=== PATIENT | male | born 1950 | race Caucasian/White ===

== ENCOUNTER 2016-12-04 19:26 | Emergency (ER) | payer MEDICARE, OTHER ==
[2016-12-04 19:39] VITALS: O2SAT 98
[2016-12-04] MEDS ORDERED: Sodium Chloride 0.9% 1000 ML 1,000 ML IV STA (19:44)
[2016-12-04] MEDS ORDERED: Zofran 4 MG/2 ML VIAL IV ONE (19:44)
--- NOTE | 2016-12-04 19:49 | ERPHSYRPT ---
- History of Present Illness Time Seen by Provider: 12/04/16 19:40 Historian: patient, family Physician History: CC: vomiting and diarrhea Hx: 66 y/o male patient of Dr Dimas. He has had vomiting and diarrhea since 7AM today. Some cramping abd discomfort that comes in waves. No fever or chills. No ill contacts. Symptoms moderately severe and not relieved with anti diarrheal tablets. He feels some general weakness. ILL: DM, hernia repair. Recent urinary hesitancy. Timing/Duration: today Allergies/Adverse Reactions: celecoxib [From Celebrex] Allergy (Verified 12/04/16 19:28) clarithromycin [From Biaxin] Allergy (Verified 12/04/16 19:28) Home Medications: Amlodipine Besylate 10 mg [Norvasc 10 MG] 10 mg PO DAILY 12/04/16 [History] Aspirin/Calcium Carbonate/Mag [Aspirin Buffered 325 mg Tab] 325 mg PO DAILY 06/13 [History] Docusate Sodium [Stool Softener] 100 mg PO DAILY 12/04/16 [History] Fenofibrate 160 mg PO DAILY 12/04/16 [History] Gabapentin 300 mg PO TID 12/04/16 [History] Hum Insulin NPH/Reg Insulin Hm [Humulin 70-30 Vial] 1 unit SQ BID 12/04/16 [ History] Hydralazine HCl 10 mg PO QID 12/04/16 [History] Levothyroxine Sodium 50 Mcg [Synthroid 50 Mcg] 50 mcg PO DAILY 12/04/16 [ History] Losartan/Hydrochlorothiazide [Losartan-Hctz 100-25 mg Tab] 1 each PO DAILY 12/04 [History] Metformin HCl [Metformin HCl ER] 500 mg PO BID 12/04/16 [History] Metoprolol Succinate 100 mg [Toprol Xl 100 MG] 100 mg PO BID 12/04/16 [ History] Pravastatin Sodium [Pravachol] 80 mg PO HS 12/04/16 [History] - Review of Systems Constitutional: Malaise, Weakness, No Fever, No Chills Eyes: No Symptoms Ears, Nose, & Throat: No Symptoms Respiratory: No Cough, No Dyspnea Cardiac: No Chest Pain Abdominal/Gastrointestinal: Abdominal Pain (cramping), Nausea, Vomiting, Diarrhea Genitourinary Symptoms: No Dysuria Musculoskeletal: No Back Pain Skin: No Rash Neurological: No Focal Weakness, No Headache, No Parasthesia All Other Systems: Reviewed and Negative - Past Medical History Pertinent Past Medical History: Yes Endocrine Medical History: Diabetes Type II Other Medical History: recent URI treated with prednisone and abtx - Past Surgical History Gastrointestinal: Hernia Repair - Social History 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) - Nursing Vital Signs Nursing Vital Signs: Initial Vital Signs Temperature 98.1 F Pulse Rate 72 Respiratory Rate 16 Blood Pressure 129/75 Pain Intensity 4 - Physical Exam General Appearance: alert Eye Exam: PERRL/EOMI Ears, Nose, Throat Exam: normal ENT inspection, moist mucous membranes Neck Exam: normal inspection, non-tender, supple Respiratory Exam: normal breath sounds, lungs clear Cardiovascular Exam: regular rate/rhythm, No murmur Gastrointestinal/Abdomen Exam: soft, No tenderness, No distention, No mass, No guarding Male Genitalia Exam: normal genitalia Back Exam: normal inspection, normal range of motion Extremity Exam: normal inspection, normal range of motion Neurologic Exam: alert, oriented x 3, cooperative, sensation nml, No motor deficits Skin Exam: warm, dry, No rash SpO2 Interpretation: normal SpO2: 98 Oxygen Delivery: Room Air - Course Nursing assessment & vital signs reviewed: Yes - Radiology Exams AAS X-ray Interpretation: Reviewed by me, Negative Ordered Tests: Active Orders 24 hr Category Date Time Status ACCUCHECK [Accucheck] STAT Care 12/04/16 19:47 Active ACCUCHECK [Accucheck] STAT Care 12/04/16 19:47 Active Clean Catch Urine Specimen STAT Care 12/04/16 19:44 Active IV Insertion STAT Care 12/04/16 19:44 Active OBSTR/ACUTE ABDOMEN SERIES Stat Exams 12/04/16 19:44 Taken CBC W DIFF Stat Lab 12/04/16 19:50 Completed CMP Stat Lab 12/04/16 19:50 Completed Lactic Acid Urgent Lab 12/04/16 19:44 Completed Manual Differential NC Stat Lab 12/04/16 19:50 Completed UA Stat Lab 12/04/16 19:44 Ordered Medication Summary Discontinued Medications Generic Name Dose Route Start Last Admin Trade Name Freq PRN Reason Stop Dose Admin Fentanyl Citrate 25 mcg 12/04/16 20:40 12/04/16 20:44 Sublimaze 100 Mcg/2 Ml IV 12/04/16 20:41 25 mcg STAT ONE Administration Fentanyl Citrate Confirm 12/04/16 20:41 Sublimaze 100 Mcg/2 Ml Administered 12/04/16 20:42 Dose 100 mcg .ROUTE .STK-MED ONE Sodium Chloride 1,000 mls @ 999 mls/hr 12/04/16 19:44 12/04/16 19:54 Sodium Chloride 0.9% 1000 Ml IV 12/04/16 20:44 999 mls/hr .Q1H1M STA Administration Sodium Chloride Confirm 12/04/16 19:50 Sodium Chloride 0.9% 1000 Ml Administered 12/04/16 19:51 Dose 1,000 mls @ ud .ROUTE .STK-MED ONE Ondansetron HCl 4 mg 12/04/16 19:44 12/04/16 19:54 Zofran 4 Mg/2 Ml Vial IV 12/04/16 19:45 4 mg STAT ONE Administration Ondansetron HCl Confirm 12/04/16 19:50 Zofran 4 Mg/2 Ml Vial Administered 12/04/16 19:51 Dose 4 mg .ROUTE .STK-MED ONE Lab/Rad Data: Laboratory Result Diagrams 12/04/16 19:50 12/04/16 19:50 Laboratory Results 12/04/16 12/04/16 12/04/16 Range/Units 19:50 19:50 19:44 WBC 11.1 H (4.0-10.5) K/mm3 RBC 5.33 (4.1-5.6) M/mm3 Hgb 14.4 (12.5-18.0) gm/dl Hct 45.0 (42-50) % MCV 84.4 (78-100) fl MCH 27.0 (26-32) pg MCHC 32.0 (32-36) g/dl RDW 14.6 H (11.5-14.0) % Plt Count 232 (150-450) K/mm3 MPV 11.6 H (6-9.5) fl Gran % 90.4 H (36.0-66.0) % Lymphocytes % 4.6 L (24.0-44.0) % Monocytes % 4.3 (0.0-12.0) % Eosinophils % 0.5 (0.00-5.0) % Basophils % 0.2 (0.0-0.4) % Segmented Neutrophils 88 H (36.-66.) % Lymphocytes (Manual) 6 L (24-44) % Monocytes (Manual) 5 (0.0-12.0) % Eosinophils (Manual) 1 (0.00-3.0) % Basophils # 0.02 (0-0.4) Differential Comment NORMAL Platelet Estimate NORMAL (NORMAL) Sodium 139 (136-145) mEq/L Potassium 4.2 (3.5-5.1) mEq/L Chloride 101 (98-107) mEq/L Carbon Dioxide 27.8 (21-32) mEq/L Anion Gap 14.4 (5-15) MEQ/L BUN 26 H (9-20) mg/dL Creatinine 1.23 (0.55-1.30) mg/dl Estimated GFR > 60 ML/MIN Glucose 221 H (70-110) MG/DL Lactic Acid 1.7 (0.4-2.0) Calcium 9.0 (8.5-10.1) mg/dL Total Bilirubin 0.5 (0.2-1.0) mg/dL AST 23 (15-37) U/L ALT 33 (12-78) U/L Alkaline Phosphatase 56 (46-116) U/L Serum Total Protein 7.6 (6.4-8.2) gm/dL Albumin 4.0 (3.4-5.0) g/dL - Progress Progress Note: 12/04/16 21:06 PAtient feels some better. Labs reassuring. He is sipping ice chips. Will release with instructions. Counseled pt/family regarding: lab results, diagnosis, need for follow-up, rad results - Departure Time of Disposition: 21:07 Departure Disposition: Home Clinical Impression: Vomiting and diarrhea Condition: Stable Critical Care Time: No Referrals: МАРИНА DIMAS [Primary Care Provider] - Instructions: Vomiting -- Adult, Diarrhea and Traveler's Diarrhea -- Adult Additional Instructions: Use ondansetron on tongue every 6 hours if needed for nausea/vomiting. Sip fluids. Advance bland diet as tolerated. REturn for worsened pain, passing blood, high fever, or concerns. Follow up next week with Dr Dimas if not better. Prescriptions: Ondansetron [Zofran Odt] 4 mg PO Q6HPRN PRN #10 tab.rapdis PRN Reason: Nausea/Vomiting
[2016-12-04] MEDS ORDERED: Sodium Chloride 0.9% 1000 ML 1,000 ML ONE (19:50)
[2016-12-04] MEDS ORDERED: Zofran 4 MG/2 ML VIAL ONE (19:50)
[2016-12-04 20:02] LABS: BASOPHIL % 0.2 % (0.0-0.4); Eosinophil % 0.5 % (0.00-5.0); Granulocytes % 90.4 % (36.0-66.0); Lymphocytes % 4.6 % (24.0-44.0); Mean Cell Volume 84.4 fl (78-100); Mean Platelet Volume 11.6 fl (6-9.5); Monocytes % 4.3 % (0.0-12.0); Platelet Count 232 K/mm3 (150-450); Red Blood Count 5.33 M/mm3 (4.1-5.6); Red Cell Distribution Width 14.6 % (11.5-14.0); White Blood Count 11.1 K/mm3 (4.0-10.5)
[2016-12-04 20:24] LABS: ALKALINE PHOSPHATASE 56 U/L (46-116); ANION GAP 14.4 MEQ/L (5-15); BILIRUBIN,TOTAL 0.5 mg/dL (0.2-1.0); BLOOD UREA NITROGEN 26 mg/dL (9-20); CHLORIDE 101 mEq/L (98-107); Carbon Dioxide 27.8 mEq/L (21-32); Glucose 221 MG/DL (70-110); Potassium 4.2 mEq/L (3.5-5.1); SGOT/AST 23 U/L (15-37); SGPT/ALT 33 U/L (12-78); SODIUM 139 mEq/L (136-145); Total Protein 7.6 gm/dL (6.4-8.2)
[2016-12-04] MEDS ORDERED: SUBLIMAZE 100 MCG/2 ML IV ONE (20:40)
[2016-12-04] MEDS ORDERED: SUBLIMAZE 100 MCG/2 ML ONE (20:41)
[2016-12-04 20:53] LABS: Eosinophil 1 % (0.00-3.0); Total Cells Counted 100
[2016-12-04 20:54] LABS: Platelet Estimate NORMAL (NORMAL)
[2016-12-04] MEDS ORDERED: ZOFRAN ODT 4 MG PO ONE (21:08)
[2016-12-04 21:09] VITALS: BP 144/64; PULSE 80
[2016-12-04] MEDS ORDERED: ZOFRAN ODT 4 MG ONE (21:12)
--- NOTE | 2016-12-05 09:28 | XRAY ---
Indication: Emesis and diarrhea. Comparison: Chest exam April 16, 2015 2 views of the abdomen demonstrates nonspecific nonobstructive bowel gas pattern. Solid organs unremarkable. Osseous structures intact with mild osteopenia and mild degenerative changes of the spine and hips. Single frontal chest remains clear again with scattered calcified granulomas and previous CABG surgery. Heart is not enlarged. Bony thorax intact again with degenerative changes. Impression: Nonacute nonobstructed abdomen. Stable nonacute one view chest with again evidence for old granulomatous disease.
== END 2016-12-04 21:47 | disposition home or self-care (01) ==
LOC: ED 19:26
DX: R11.2 Nausea with vomiting, unspecified (principal); R19.7 Diarrhea, unspecified; R10.9 Unspecified abdominal pain; E11.9 Type 2 diabetes mellitus without complications; Z79.4 Long term (current) use of insulin
CPT/HCPCS: 36000; 36415; 74022; 80053; 82962; 83605; 85025; 96360; 96374; 96375; 99283; J2405; J3010; Q0162

== ENCOUNTER 2016-12-05 20:36 | Observation (INO) | payer MEDICARE, OTHER ==
[2016-12-05] MEDS ORDERED: Zofran 4 MG/2 ML VIAL IV ONE (21:37)
[2016-12-05] MEDS ORDERED: Sodium Chloride 0.9% 1000 ML 1,000 ML IV STA (21:37)
[2016-12-05] MEDS ORDERED: Zofran 4 MG/2 ML VIAL ONE (21:40)
[2016-12-05] MEDS ORDERED: Sodium Chloride 0.9% 1000 ML 1,000 ML ONE (21:40)
--- NOTE | 2016-12-05 21:43 | ERPHSYRPT ---
- History of Present Illness Time Seen by Provider: 12/05/16 21:39 Historian: patient Exam Limitations: no limitations Patient Subjective Stated Complaint: dx with flu here in the er yesterday.. pt readmitted with continued nausea and the desire to be admitted as a pt here at the hospital Triage Nursing Assessment: diarrhea and vomiting yesterday, today pt has nausea and the inability to eat. pt c/o severe weakness. Physician History: 66-year-old white male with history of diabetes, angina, upper respiratory infection Patient seen here yesterday for vomiting and diarrhea states that today is worse. Patient states he feels nauseous he states he can't keep anything down he has continued stools. Patient apparently was given medicine to make him not vomit. Past medical history includes diabetes type 2, angina, upper respiratory infection Past surgical history includes quadruple bypass and hernia surgery Timing/Duration: yesterday Activities at Onset: none Quality: cramping Abdominal Pain Onset Location: other (lower abdominal cramping) Pain Radiation: no radiation Severity of Pain-Max: mild Severity of Pain-Current: mild Modifying Factors: Improves With: vomiting, other (diarrhea). Worsens With: analgesics, antacids, breathing, coughing, defecating, eating, exercise, lying down, movement, palpation, rest, urinating, position Associated Symptoms: denies symptoms Previous symptoms: same symptoms as today (seen yesterday for the same), recently seen (seen yesterday for the same) Allergies/Adverse Reactions: celecoxib [From Celebrex] Allergy (Verified 12/04/16 19:28) clarithromycin [From Biaxin] Allergy (Verified 12/04/16 19:28) Home Medications: Amlodipine Besylate 10 mg [Norvasc 10 MG] 10 mg PO DAILY 12/04/16 [History] Aspirin/Calcium Carbonate/Mag [Aspirin Buffered 325 mg Tab] 325 mg PO DAILY 06/13 [History] Docusate Sodium [Stool Softener] 100 mg PO DAILY 12/04/16 [History] Fenofibrate 160 mg PO DAILY 12/04/16 [History] Gabapentin 300 mg PO TID 12/04/16 [History] Hum Insulin NPH/Reg Insulin Hm [Humulin 70-30 Vial] 1 unit SQ BID 12/04/16 [ History] Hydralazine HCl 10 mg PO QID 12/04/16 [History] Levothyroxine Sodium 50 Mcg [Synthroid 50 Mcg] 50 mcg PO DAILY 12/04/16 [ History] Losartan/Hydrochlorothiazide [Losartan-Hctz 100-25 mg Tab] 1 each PO DAILY 12/04 [History] Metformin HCl [Metformin HCl ER] 500 mg PO BID 12/04/16 [History] Metoprolol Succinate 100 mg [Toprol Xl 100 MG] 100 mg PO BID 12/04/16 [ History] Pravastatin Sodium [Pravachol] 80 mg PO HS 12/04/16 [History] Hx Tetanus, Diphtheria Vaccination/Date Given: Yes Hx Influenza Vaccination/Date Given: Yes Hx Pneumococcal Vaccination/Date Given: Yes Immunizations Up to Date: Yes - Review of Systems Constitutional: No Fever, No Chills Eyes: No Symptoms Ears, Nose, & Throat: No Symptoms Respiratory: No Cough, No Dyspnea Cardiac: No Chest Pain, No Edema, No Syncope Abdominal/Gastrointestinal: Abdominal Pain (lower abdominal pain), No Nausea, No Vomiting, No Diarrhea, No Constipation, No Hematemesis, No Hematochezia, No Melena, No Dysphagia, No Appetite Changes Genitourinary Symptoms: No Dysuria Musculoskeletal: No Back Pain, No Neck Pain Skin: No Rash Neurological: No Dizziness, No Focal Weakness, No Sensory Changes Psychological: No Symptoms Endocrine: No Symptoms All Other Systems: Reviewed and Negative - Past Medical History Pertinent Past Medical History: Yes Neurological History: No Pertinent History ENT History: No Pertinent History Cardiac History: Angina Respiratory History: No Pertinent History Endocrine Medical History: Diabetes Type II Musculoskeletal History: No Pertinent History GI Medical History: No Pertinent History History: No Pertinent History Psycho-Social History: No Pertinent History Male Reproductive Disorders: No Pertinent History Other Medical History: recent URI treated with prednisone and abtx - Past Surgical History Past Surgical History: Yes Neuro Surgical History: No Pertinent History Cardiac: No Pertinent History Respiratory: No Pertinent History Gastrointestinal: Hernia Repair Genitourinary: No Pertinent History Musculoskeletal: No Pertinent History Male Surgical History: No Pertinent History Other Surgical History: quadruple bypass 2007, - Social History Smoking Status: Former smoker Exposure to second hand smoke: No Drug Use: none 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) - Nursing Vital Signs Nursing Vital Signs: Initial Vital Signs Temperature 97.8 F Temperature Source Oral Pulse Rate 91 Respiratory Rate 18 Blood Pressure 137/69 Pain Intensity 3 - Physical Exam General Appearance: mild distress Eye Exam: PERRL/EOMI, eyes nml inspection Ears, Nose, Throat Exam: normal ENT inspection, pharynx normal, moist mucous membranes Neck Exam: normal inspection, non-tender, supple, full range of motion Respiratory Exam: normal breath sounds, lungs clear, No respiratory distress Cardiovascular Exam: regular rate/rhythm, normal heart sounds Gastrointestinal/Abdomen Exam: soft, other (abdomen mildly distended tender lower quadrantspositive bowel sounds negative rebo) Back Exam: normal inspection, normal range of motion, No CVA tenderness, No vertebral tenderness Extremity Exam: normal inspection, normal range of motion, pelvis stable Neurologic Exam: alert, oriented x 3, cooperative, normal mood/affect, nml cerebellar function, sensation nml, No motor deficits Skin Exam: normal color, warm, dry SpO2 Interpretation: normal (95%) SpO2: 95 Oxygen Delivery: Room Air - Course Nursing assessment & vital signs reviewed: Yes EKG Interpreted by Me: RATE (82 bpm), NORMAL AXIS, Other (EKG, sinus arrhythmia , 82 bpm, T wave inversions in leads 1 aVL, V1 through V4 age undetermined no old EKG for comparison) Ordered Tests: Active Orders 24 hr Category Date Time Status Clean Catch Urine Specimen STAT Care 12/05/16 23:57 Active EKG-ER Only STAT Care 12/05/16 23:37 Active IV Insertion STAT Care 12/05/16 21:37 Active Orthostatic Vital Signs STAT Care 12/05/16 21:39 Active AMYLASE Stat Lab 12/05/16 21:50 Completed CBC W DIFF Stat Lab 12/05/16 21:50 Completed CMP Stat Lab 12/05/16 21:50 Completed LIPASE Stat Lab 12/05/16 21:50 Completed Manual Differential NC Stat Lab 12/05/16 21:50 Completed UA Stat Lab 12/05/16 23:31 Ordered Medication Summary Discontinued Medications Generic Name Dose Route Start Last Admin Trade Name Freq PRN Reason Stop Dose Admin Sodium Chloride 1,000 mls @ 999 mls/hr 12/05/16 21:37 12/05/16 21:41 Sodium Chloride 0.9% 1000 Ml IV 12/05/16 22:37 999 mls/hr .Q1H1M STA Administration Sodium Chloride Confirm 12/05/16 21:40 Sodium Chloride 0.9% 1000 Ml Administered 12/05/16 21:41 Dose 1,000 mls @ ud .ROUTE .STK-MED ONE Ondansetron HCl 4 mg 12/05/16 21:37 12/05/16 21:40 Zofran 4 Mg/2 Ml Vial IV 12/05/16 21:38 4 mg STAT ONE Administration Ondansetron HCl Confirm 12/05/16 21:40 Zofran 4 Mg/2 Ml Vial Administered 12/05/16 21:41 Dose 4 mg .ROUTE .STK-MED ONE Lab/Rad Data: Laboratory Result Diagrams 12/05/16 21:50 12/05/16 21:50 Laboratory Results 12/05/16 12/05/16 Range/Units 21:50 21:50 WBC 6.8 (4.0-10.5) K/mm3 RBC 4.96 (4.1-5.6) M/mm3 Hgb 13.3 (12.5-18.0) gm/dl Hct 42.0 (42-50) % MCV 84.7 (78-100) fl MCH 26.8 (26-32) pg MCHC 31.7 L (32-36) g/dl RDW 14.9 H (11.5-14.0) % Plt Count 191 (150-450) K/mm3 MPV 11.2 H (6-9.5) fl Segmented Neutrophils 86 H (36.-66.) % Lymphocytes (Manual) 5 L (24-44) % Monocytes (Manual) 9 (0.0-12.0) % Differential Comment NORMAL Platelet Estimate NORMAL (NORMAL) Sodium 137 (136-145) mEq/L Potassium 4.2 (3.5-5.1) mEq/L Chloride 98 (98-107) mEq/L Carbon Dioxide 27.0 (21-32) mEq/L Anion Gap 16.5 H (5-15) MEQ/L BUN 28 H (9-20) mg/dL Creatinine 1.33 H (0.55-1.30) mg/dl Estimated GFR 57 ML/MIN Glucose 276 H (70-110) MG/DL Calcium 7.9 L (8.5-10.1) mg/dL Total Bilirubin 0.5 (0.2-1.0) mg/dL AST 22 (15-37) U/L ALT 33 (12-78) U/L Alkaline Phosphatase 46 (46-116) U/L Serum Total Protein 7.0 (6.4-8.2) gm/dL Albumin 3.6 (3.4-5.0) g/dL Amylase 22 L (25-115) U/L Lipase 162 (73-393) U/L - Progress Progress: improved Progress Note: 12/05/16 23:31 This is a 66-year-old white male who was seen here yesterday secondary to nausea and vomiting Patient states he continues to have nausea vomiting he has some lower abdominal pain he has not had any fevers. Patient feels like he cannot manage at home. Patient's labs essentially normal vitals are stable. Will discuss case with Dr. cano 12/05/16 23:35 Patient given IV fluids and Zofran. Patient's labs remarkable for elevated glucose of 276. Patient just now able to provide a urine. Patient states that he cannot manage at home he continues to have nausea and vomiting case is discussed with Dr. cano Will place on observation. - Departure Time of Disposition: 23:34 Departure Disposition: Observation Clinical Impression: Failure of outpatient treatment Nausea and vomiting Qualifiers: Vomiting type: unspecified Vomiting Intractability: intractable Qualified Code( s): R11.2 - Nausea with vomiting, unspecified Condition: Fair Critical Care Time: No Referrals: МАРИНА CANO [Primary Care Provider] -
[2016-12-05 22:00] LABS: Mean Cell Volume 84.7 fl (78-100); Mean Corpuscular Hemoglobin 26.8 pg (26-32); Mean Platelet Volume 11.2 fl (6-9.5); Platelet Count 191 K/mm3 (150-450); Red Blood Count 4.96 M/mm3 (4.1-5.6); Red Cell Distribution Width 14.9 % (11.5-14.0); White Blood Count 6.8 K/mm3 (4.0-10.5)
[2016-12-05 22:21] LABS: ALBUMIN 3.6 g/dL (3.4-5.0); ANION GAP 16.5 MEQ/L (5-15); BILIRUBIN,TOTAL 0.5 mg/dL (0.2-1.0); Potassium 4.2 mEq/L (3.5-5.1)
[2016-12-05 22:31] LABS: Platelet Estimate NORMAL (NORMAL); Total Cells Counted 100
[2016-12-06] MEDS ORDERED: Sodium Chloride 0.9% 1000 ML 1,000 ML IV SCH (00:40)
[2016-12-06] MEDS ORDERED: Zofran 4 MG/2 ML VIAL IV PRN (00:40)
[2016-12-06 00:44] LABS: Collection Type CLEAN CATCH
[2016-12-06 00:45] LABS: COMPLETE URINE MICROSCOPIC? YES; Epithelial Cells FEW /HPF (FEW); Ph 5.5 (5-6)
[2016-12-06 05:57] LABS: Mean Cell Volume 85.1 fl (78-100); Mean Platelet Volume 11.5 fl (6-9.5); Platelet Count 159 K/mm3 (150-450); Red Blood Count 4.15 M/mm3 (4.1-5.6); Red Cell Distribution Width 14.7 % (11.5-14.0); White Blood Count 4.4 K/mm3 (4.0-10.5)
[2016-12-06 05:58] LABS: ALBUMIN 2.8 g/dL (3.4-5.0); ALKALINE PHOSPHATASE 34 U/L (46-116); ANION GAP 12.2 MEQ/L (5-15); BILIRUBIN,TOTAL 0.4 mg/dL (0.2-1.0); BLOOD UREA NITROGEN 25 mg/dL (9-20); CHLORIDE 102 mEq/L (98-107); Carbon Dioxide 28.2 mEq/L (21-32); Glucose 260 MG/DL (70-110); Potassium 3.9 mEq/L (3.5-5.1); SGOT/AST 17 U/L (15-37); SGPT/ALT 25 U/L (12-78); SODIUM 139 mEq/L (136-145); Total Protein 5.7 gm/dL (6.4-8.2)
[2016-12-06 06:03] LABS: Mean Corpuscular Hemoglobin 26.9 pg (26-32)
[2016-12-06 06:30] LABS: BAND 9 % (0.0-2.0); Platelet Estimate NORMAL (NORMAL); Total Cells Counted 100
[2016-12-06] MEDS: NovoLOG Insulin SQ PRN ×2 (08:17→11:36)
[2016-12-06] MEDS ORDERED: TYLENOL 325 MG PO PRN (08:31)
[2016-12-06] MEDS: Lantus Insulin SQ SCH (09:47)
[2016-12-06] MEDS: Dextrose 5% -0.45 NaCl 1000 ML 1,000 ML IV SCH ×2 (10:22→20:27)
[2016-12-06] MEDS: ENOXAPARIN SODIUM SQ SCH (11:34)
[2016-12-06] MEDS: NORVASC 5 MG PO SCH (11:35)
[2016-12-06] MEDS: SYNTHROID 50 MCG PO SCH (11:35)
[2016-12-06] MEDS: Tricor 145 MG PO SCH (11:35)
[2016-12-06] MEDS: Colace 100 MG PO SCH (11:35)
[2016-12-06] MEDS: Toprol Xl 100 MG PO SCH ×2 (11:39→21:45)
[2016-12-06] MEDS: NEURONTIN 300 MG PO SCH ×2 (14:31→21:45)
[2016-12-06] MEDS ORDERED: IMODIUM 2 MG PO ONE (14:42)
[2016-12-06] MEDS ORDERED: ZOCOR 20MG PO SCH (22:00)
[2016-12-06] MEDS ORDERED: NON-FORMULARY ITEM (Pravastatin Sodium [Pravachol] 80 MG) PO SCH (22:00)
[2016-12-07] MEDS: IMODIUM 2 MG PO PRN ×3 (01:51→13:57)
[2016-12-07] MEDS: Lantus Insulin SQ SCH (08:02)
--- NOTE | 2016-12-07 08:09 | HP ---
HISTORY OF PRESENT ILLNESS: This is a 66 year-old man who presented to the emergency department on 12/04/2016 with diarrhea and vomiting. He was sent home with some Zofran to take by mouth. He then presented again on 12/05/2016 with continued stomach pain. He reports today that his diarrhea has decreased that he has not had any since yesterday but he continues to have nausea with dry heaves. He states he had some fruit cocktail early Tuesday morning but otherwise has not eaten anything. He has not had any fever that he knows of. He states that he started to get more weak and was having trouble walking at home and that his stomach felt wheezy. He states that this was in the middle of his stomach. He had been on antibiotic the end of September for a chronic obstructive pulmonary disease exacerbation and had gotten better after completing those. REVIEW OF SYSTEMS: He denies any chest pain, no dyspnea, no cough, no rhinorrhea, no dysuria. He states sometimes it has been hard to urinate this past week. He denies any blood in his stools. He has not traveled. He has city water. He lives in the [facility]. He states that some people have been sick there but he is not sure what they have been sick with. He denies any rashes. He has had a slight headache for one day for which he took some Advil for yesterday. PAST MEDICAL HISTORY: Chronic obstructive pulmonary disease. Diabetes mellitus type 2. Hyperlipidemia. Hypertension. History of coronary artery disease. History of asthma. PAST SURGICAL HISTORY: Coronary artery bypass graft. Left rotator cuff repair. Hernia surgery. Throat operation. MEDICATIONS: Amlodipine 10 mg p.o. daily, aspirin 325 mg p.o. daily, docusate 100 mg p.o. daily, Fenofibrate 160 mg p.o. daily, gabapentin 300 mg p.o. t.i.d., Humulin NPH with regular insulin 70/30 with 15 units in the morning and 55 in the evening. Hydralazine 10 mg p.o. four times a day, levothyroxine 50 mcg p.o. daily, Losartan/hydrochlorothiazide 100/25 mg 1 tablet p.o. daily, Metformin 500 mg p.o. b.i.d., Metoprolol 100 mg p.o. b.i.d., Zofran 4 mg p.o. every six hours as needed, Pravastatin 80 mg p.o. q.h.s. ALLERGIES: CELEBREX, CLARITHROMYCIN. SOCIAL HISTORY: He is and lives with his . He used to smoke but quit in 1994 after smoking for 40 years. He denies any alcohol use. FAMILY HISTORY: His mother of myocardial infarction at 61 years of age. His father at 82 from diabetes and coronary artery disease. PHYSICAL EXAMINATION: VITAL SIGNS: Temperature current 99.1F, temperature max 99.4F, heart rate 72 to 91, respiratory rate 17 to 20, blood pressure 130 to 163 over 58 to 78, weight 99.1 kg. Oxygen saturation 94 to 98% on 2 liters nasal cannula. The respiratory therapy note said that nursing staff said he was dipping down into the 80's last night so he was placed on 2 liters nasal cannula. GENERAL: The patient is a pleasant talkative man lying in bed in no acute distress. CVS: He has a regular rate and rhythm. No murmurs, gallops or rubs are appreciated. CHEST: Clear to auscultation bilaterally with equal breath sounds. ABDOMEN: Hyperactive bowel sounds. No guarding. No rigidity. No point tenderness. EXTREMITIES: No clubbing, cyanosis or edema. SKIN: Warm, dry and intact. LABORATORY DATA AND TESTS: His white blood cell count was 4.4 with 81% neutrophils and 9% bands, 8% lymphocytes. Glucose 260. UA revealed 500 of glucose. X-ray from his first emergency room visit he had acute abdominal series that read as normal. ASSESSMENT AND PLAN: 1) VOMITING WITH DIARRHEA: This may be a viral gastroenteritis, will also try to check Clostridium difficile if he has any more watery stools. Will continue with IV fluids and clear liquid diet that we can advance as tolerated. His white blood cell count is normal but he does have a left shift so will check lactic acid. 2) HYPERTENSION. I am going to continue his metoprolol and amlodipine but at this time hold his hydralazine and losartan/hydrochlorothiazide but if it looks like his blood pressure is running high will restart these as well. 3) HISTORY OF CORONARY ARTERY DISEASE. Will continue with aspirin and statins as well as beta ailyn. 4) CHRONIC OBSTRUCTIVE PULMONARY DISEASE. He had some hypoxemia last night, will try to get a home oxygen evaluation before he goes to see if he needs oxygen and he may also need to do overnight pulse ox on him.
[2016-12-07] MEDS: Dextrose 5% -0.45 NaCl 1000 ML 1,000 ML IV SCH (08:22)
[2016-12-07] MEDS: Toprol Xl 100 MG PO SCH (08:24)
[2016-12-07] MEDS: NEURONTIN 300 MG PO SCH ×2 (08:24→15:12)
[2016-12-07] MEDS: Tricor 145 MG PO SCH (08:24)
[2016-12-07] MEDS: SYNTHROID 50 MCG PO SCH (08:25)
[2016-12-07] MEDS: ENOXAPARIN SODIUM SQ SCH (08:25)
[2016-12-07] MEDS: NORVASC 5 MG PO SCH (08:25)
[2016-12-07] MEDS: Colace 100 MG PO SCH (08:26)
--- NOTE | 2016-12-07 08:50 | PCM.NOTE ---
Date and Time: 12/07/16 0846 Subjective Assessment: He reports he continues to have some diarrhea that happens so fast he cannot get to the bathroom. He reports his abdominal pain is better and he is not vomiting. He would like to try some toast to eat. He does not think he got any does of imodium. - Review of Systems Constitutional: No Symptoms Eyes: No Symptoms Ears, Nose, & Throat: No Symptoms Respiratory: No Symptoms Cardiac: No Symptoms Abdominal/Gastrointestinal: Abdominal Pain, Diarrhea, No Nausea, No Vomiting Genitourinary Symptoms: No Symptoms Musculoskeletal: No Symptoms Skin: No Symptoms Objective Exam General Appearance: no apparent distress, alert Neurologic Exam: alert, cooperative, normal mood/affect Skin Exam: normal color, warm, dry, No rash Respiratory Exam: normal breath sounds, lungs clear, airway intact, No crackles/ rales, No rhonchi, No wheezing Cardiovascular Exam: regular rate/rhythm, normal heart sounds, No murmur, No friction rub, No gallop Gastrointestinal/Abdomen Exam: soft, other (hyperactive bowel sounds), No tenderness, No distention, No mass, No guarding Extremity Exam: normal inspection, other (no c/c, mild edema left leg (baseline for patient), no edema right leg) OBJECTIVE DATA Vital Signs: Vital Signs - 24 hr Temp Pulse Resp BP Pulse Ox 12/07/16 07:50 98.1 F 59 L 20 142/63 91 L 12/07/16 05:26 90 L 12/07/16 04:00 98.1 F 59 L 17 131/60 94 L 12/07/16 00:00 99.5 F 63 20 123/58 92 L 12/06/16 20:00 97.5 F 64 20 173/77 96 12/06/16 19:35 94 L 12/06/16 19:33 98 12/06/16 16:00 99.0 F 64 17 139/66 96 12/06/16 12:00 98.3 F 63 18 165/70 95 Oxygen-Last 24 hours O2 Percentage 1 Liter = 24% O2 Percentage 1 Liter = 24% Pain Assessment - Last Documented Pain Intensity 0 Pain Scale Used 0-10 Pain Scale Intake and Output: Intake & Output 12/05/16 12/06/16 12/07/16 12/08/16 06:59 06:59 06:59 06:59 Intake Total 461 3454 960 Output Total 2150 300 Balance 461 1304 660 Weight 99.11 kg 99.11 kg Lab Results: Accuchecks Date 12/06/16 Date 12/06/16 Time 16:30 Time 11:30 Accucheck Value: 195 Accucheck Value: 209 Accucheck Value: 239 Lab Results-Last 24 Hours 12/06/16 12/06/16 Range/Units 08:36 10:59 Lactic Acid 1.7 (0.4-2.0) Stl C. diff Tox B Gene NEGATIVE (NEGATIVE) C.difficile [id number] PRESUMPTIVE NEGATIVE (NEGATIVE) Assessment/Plan (1) Vomiting and diarrhea Current Visit: No Status: Acute Assessment & Plan: Diarrhea continues, C.diff was negative. Imodium ordered. Most likely viral gastroenteritis. Code(s): R11.10 - VOMITING, UNSPECIFIED; R19.7 - DIARRHEA, UNSPECIFIED (2) Hypertension Current Visit: Yes Status: Acute Assessment & Plan: Currently well controlled. Code(s): I10 - ESSENTIAL (PRIMARY) HYPERTENSION (3) History of coronary artery disease Current Visit: Yes Status: Acute Assessment & Plan: Continue home medication. Stable. Code(s): Z86.79 - PERSONAL HISTORY OF OTHER DISEASES OF THE CIRCULATORY SYSTEM (4) COPD with hypoxia Current Visit: Yes Status: Acute Assessment & Plan: He had an overnight pulse ox and qualifies for home oxygen at night. Discharge planning to work on setting this up. Code(s): J44.9 - CHRONIC OBSTRUCTIVE PULMONARY DISEASE, UNSPECIFIED; R09.02 - HYPOXEMIA
[2016-12-07] MEDS ORDERED: Ecotrin 325 MG PO SCH (10:00)
[2016-12-07] MEDS ORDERED: NON-FORMULARY ITEM (Docusate Sodium [Stool Softener] 100 MG) PO SCH (10:00)
[2016-12-07] MEDS ORDERED: NON-FORMULARY ITEM (Fenofibrate [Fenofibrate] 160 MG) PO SCH (10:00)
[2016-12-07] MEDS ORDERED: ASPIRIN PO SCH (10:00)
[2016-12-07] MEDS ORDERED: MAG PO SCH (10:00)
[2016-12-07] MEDS ORDERED: NON-FORMULARY ITEM (Amlodipine Besylate 10 Mg [Norvasc 10 Mg] 10 MG) PO SCH (10:00)
[2016-12-07] MEDS ORDERED: CALCIUM CARBONATE PO SCH (10:00)
[2016-12-07] MEDS: NovoLOG Insulin SQ PRN ×2 (11:38→17:03)
[2016-12-07 17:00] VITALS: BP 121/59; PULSE 62; O2SAT 94
== END 2016-12-07 18:51 | disposition home or self-care (01) ==
LOC: ED 20:36 → MED SURG 12-06 00:39
PROVIDERS: ADMIT Internal Medicine; ATTEND Internal Medicine
DX: R11.10 Vomiting, unspecified (principal); R19.7 Diarrhea, unspecified; I10 Essential (primary) hypertension; I25.10 Atherosclerotic heart disease of native coronary artery without angina pectoris; J44.9 Chronic obstructive pulmonary disease, unspecified; R09.02 Hypoxemia; E11.9 Type 2 diabetes mellitus without complications; Z79.4 Long term (current) use of insulin; E78.5 Hyperlipidemia, unspecified; J45.909 Unspecified asthma, uncomplicated; Z79.899 Other long term (current) drug therapy
CPT/HCPCS: 36000; 36415; 80053; 81000; 82150; 82962; 83605; 83690; 85025; 87493; 93005; 93268; 94760; 94762; 96360; 96361; 96374; 99284; G0378; J1650; J2405

== ENCOUNTER 2023-05-14 07:37 | Observation (INO) | payer MEDICARE ==
--- NOTE | 2023-05-14 08:25 | ERPHSYRPT ---
- History of Present Illness Time Seen by Provider: 05/14/23 08:23 Source: patient, family Exam Limitations: clinical condition Patient Subjective Stated Complaint: C/O generalized weakness and diarrhea. Patient states he was at [facility] for 8 days related to SOB and cardiac issues. Dr. León did a heart cath and stent placement during that time. He states he was then transferred to [facility] for another 8 days where he started hemodialysis. Patient was released from the hospital last night to return home with [facility] with outpatient hemodialysis set up for Tuesday in [place]. Patient is here today related to continued weakness from overall health. Triage Nursing Assessment: Patient arrived by ambulance. He is alert and oriented; anxious. No SOB. Dressing noted to RUE; extremity is swollen, hand is red. A hemodialysis permacath is noted to right chest. Bracelet in place to RUE to NOT use this arm for sticks or B/P. Patient is not showing s/s of pain and denies pain. Patient had a BM during assessment; color normal, diarrhea, no mucous present. Weakness is generalized and localized to one side of the body. Physician History: C/O generalized weakness and diarrhea. Patient states he was at [facility] for 8 days related to SOB and cardiac issues. Dr. León did a heart cath and stent placement during that time. He states he was then transferred to [facility] for another 8 days where he started hemodialysis. Patient was released from the hospital last night to return home with [facility] with outpatient hemodialysis set up for Tuesday in [place]. Patient is here today related to continued weakness from overall health. Patient has been very weak unable to get out of the bed at all and his also cannot help him because of his profound weakness. Patient has multiple problem including recent myocardial infarction severe congestive heart failure stage V dialysis kidney failure and patient recently started on dialysis. All this combination of factors has made up patient very weak as well as patient has a long hospital stay which is also admitted patient debilitated. Associated Symptoms: shortness of breath, weakness Allergies/Adverse Reactions: celecoxib [From Celebrex] Allergy (Verified 05/14/23 07:42) clarithromycin [From Biaxin] Allergy (Verified 05/14/23 07:42) Home Medications: Amlodipine Besylate 10 mg [Norvasc 10 MG] 10 mg PO DAILY 12/04/16 [History] Aspirin/Calcium Carbonate/Mag [Aspirin Buffered 325 mg Tab] 325 mg PO DAILY 12/04/16 [History] Docusate Sodium [Stool Softener] 100 mg PO DAILY 12/04/16 [History] Fenofibrate 160 mg PO DAILY 12/04/16 [History] Gabapentin 300 mg PO TID 12/04/16 [History] Hydralazine HCl 10 mg PO QID 12/04/16 [History] Insulin NPH Hum/Reg Insulin Hm [Humulin 70-30 Vial] 1 unit SQ BID 12/04/16 [History] Levothyroxine Sodium 50 Mcg [Synthroid 50 Mcg] 50 mcg PO DAILY 12/04/16 [History] Losartan/Hydrochlorothiazide [Losartan-Hctz 100-25 mg Tab] 1 each PO DAILY 12/04/16 [History] Metformin HCl [Metformin HCl ER] 500 mg PO BID 12/04/16 [History] Metoprolol Succinate 100 mg [Toprol Xl 100 MG] 100 mg PO BID 12/04/16 [History] Pravastatin Sodium [Pravachol] 80 mg PO HS 12/04/16 [History] Hx Tetanus, Diphtheria Vaccination/Date Given: Yes Hx Influenza Vaccination/Date Given: Yes Hx Pneumococcal Vaccination/Date Given: Yes Immunizations Up to Date: Yes Travel Risk - International Travel Have you traveled outside of the country in past 3 weeks: No - Coronavirus Screening Are you exhibiting any of the following symptoms?: No Close contact with a COVID-19 positive Pt in past 14-21 Days: No - Vaccine Status Have you recieved a Covid-19 vaccination: No - Review of Systems Constitutional: Lethargy, Malaise, Weakness, No Fever, No Chills Eyes: No Symptoms Ears, Nose, & Throat: No Symptoms Respiratory: No Cough, No Dyspnea Cardiac: No Chest Pain, No Edema, No Syncope Abdominal/Gastrointestinal: No Abdominal Pain, No Nausea, No Vomiting, No Diarrhea Genitourinary Symptoms: No Dysuria Musculoskeletal: No Back Pain, No Neck Pain Skin: No Rash Neurological: No Dizziness, No Focal Weakness, No Sensory Changes Psychological: No Symptoms Endocrine: No Symptoms All Other Systems: Reviewed and Negative - Past Medical History Pertinent Past Medical History: Yes Neurological History: No Pertinent History ENT History: No Pertinent History Cardiac History: Angina, Hypertension Respiratory History: Asthma, COPD Endocrine Medical History: Diabetes Type II, Hypothyroidism Musculoskeletal History: Arthritis GI Medical History: GERD, Other History: No Pertinent History Psycho-Social History: No Pertinent History Male Reproductive Disorders: No Pertinent History Other Medical History: hemodialysis (Dr. Hayden), NSTEMI - Past Surgical History Past Surgical History: Yes Neuro Surgical History: No Pertinent History Cardiac: Cardiac Catheterization, Cardiac Stent, Other Respiratory: No Pertinent History Gastrointestinal: Hernia Repair Genitourinary: No Pertinent History Musculoskeletal: No Pertinent History Male Surgical History: No Pertinent History Other Surgical History: quadruple bypass 2007, dialysis permacath placement - Social History Smoking Status: Former smoker Exposure to second hand smoke: No Drug Use: none Patient Lives Alone: No () - Nursing Vital Signs Nursing Vital Signs: Initial Vital Signs Temperature 97.4 F 05/14/23 07:43 Pulse Rate 71 05/14/23 07:43 Respiratory Rate 18 05/14/23 07:43 Blood Pressure 155/90 05/14/23 07:43 O2 Sat by Pulse Oximetry 95 05/14/23 07:43 Pain Scale Pain Intensity 0 - Physical Exam General Appearance: no apparent distress, alert Eye Exam: PERRL/EOMI, eyes nml inspection Ears, Nose, Throat Exam: normal ENT inspection, TMs normal, pharynx normal, moist mucous membranes Neck Exam: normal inspection, non-tender, supple, full range of motion Respiratory Exam: normal breath sounds, lungs clear, No respiratory distress Cardiovascular Exam: capillary refill 2-3 sec, edema Gastrointestinal/Abdomen Exam: soft, normal bowel sounds, No tenderness, No mass Back Exam: normal inspection, normal range of motion, No CVA tenderness, No vertebral tenderness Extremity Exam: normal inspection, normal range of motion, pelvis stable, inflammation, swelling Neurologic Exam: alert, oriented x 3, cooperative, normal mood/affect, nml cerebellar function, nml station & gait, sensation nml, No motor deficits Skin Exam: normal color, warm, dry, No rash Lymphatic Exam: No adenopathy SpO2: 95 - Course Nursing assessment & vital signs reviewed: Yes Ordered Tests: Active Orders 24 hr Category Date Time Status Transfer Order Routine Transfer 05/14/23 Ordered - Progress Progress: unchanged Discussed with DrMargo: Other (Dr Brandon (Hospitalist)) Will see patient in: hospital (observation) Counseled pt/family regarding: need for follow-up Medical Desision Making - Independent Historian Additional History obtained from: Spouse - External Record(s) Reviewed Records reviewed as a part of evaluation & management: Inpatient, Discharge Summary - Discussion of managment Care discussed with:: on-call "doc" Reviewed:: Need for additional workup Agreed on:: decision to admit, place in obs - Departure Departure Disposition: Observation Clinical Impression: Complaint of debility and malaise, Failure of outpatient treatment Condition: Fair Critical Care Time: No Referrals: NITA MCKAY DO [Primary Care Provider] - Follow up/PCP as directed
[2023-05-14] MEDS ORDERED: VENTOLIN COMMON CANISTER IH PRN (12:12)
[2023-05-14] MEDS ORDERED: NON-FORMULARY ITEM (Insulin Lispro [Humalog Kwikpen U-100] 100 UNIT/ML Insuln.Pen) SQ PRN (12:12)
[2023-05-14] MEDS ORDERED: RIBOFLAVIN 100 MG PO SCH (12:15)
[2023-05-14] MEDS ORDERED: HUMALOG SQ PRN (12:26)
[2023-05-14] MEDS ORDERED: MEDICATION INTERVENTION MC SCH ×3 (12:45)
[2023-05-14] MEDS ORDERED: Imdur 30 MG PO SCH (13:00)
[2023-05-14] MEDS ORDERED: CARDURA 2 MG PO SCH (13:00)
[2023-05-14] MEDS ORDERED: Docusate Sodium 100 MG PO SCH (13:00)
[2023-05-14] MEDS ORDERED: Avodart 0.5 MG PO SCH (13:00)
[2023-05-14] MEDS ORDERED: Tricor 145 MG PO SCH (13:00)
[2023-05-14] MEDS ORDERED: ZOCOR 20MG PO SCH (13:00)
[2023-05-14] MEDS ORDERED: SYNTHROID 88 MCG PO SCH (13:00)
[2023-05-14] MEDS ORDERED: NORVASC 5 MG PO SCH (13:00)
[2023-05-14] MEDS ORDERED: Lexapro PO SCH (13:00)
[2023-05-14] MEDS: clonazePAM PO SCH ×2 (15:46→21:30)
[2023-05-14] MEDS: Apresoline 25 MG TABLET PO SCH ×2 (16:37→21:30)
[2023-05-14] MEDS ORDERED: Vibramycin 100 MG PO SCH (17:00)
[2023-05-14] MEDS ORDERED: HUMALOG SQ SCH (17:00)
[2023-05-14] MEDS ORDERED: Lasix 40 MG PO SCH (17:00)
--- NOTE | 2023-05-14 17:08 | PCM.HP ---
History of Present Illness - Chief Complaint Chief Complaint: debility Date: 05/14/23 History of Present Illness: is a 72 year old male who presents to the hospital with generalized weakness and diarrhea. He had recently been at [facility] for 8 days related for a cardiac workup, and Dr. León performed coronary catheterization with stent deployment. Subsequently, the patient experienced renal impairment and he was then transferred to [facility] for another 8 days where he started hemodialysis. A permacath was placed, and the patient was released from the hospital last night to return home with [facility] with outpatient hemodialysis set up for Tuesday in [place]. However, the patient's debility has been progressive and he has not been able to get out of bed. He has no localizing, specific complaints such as pain, fever, nausea, cough or diarrhea. The patient was seen and examined via telemedicine. The entirety of this encounter was performed via telemedicine. The patient consented to this telemedicine encounter. - Review of Systems Constitutional: Malaise, Weakness Eyes: No Symptoms Ears, Nose, & Throat: No Symptoms Respiratory: No Symptoms Cardiac: No Symptoms Abdominal/Gastrointestinal: No Symptoms Genitourinary Symptoms: No Symptoms Musculoskeletal: No Symptoms Skin: No Symptoms Neurological: No Symptoms Psychological: No Symptoms Endocrine: No Symptoms Hematologic/Lymphatic: No Symptoms Immunological/Allergic: No Symptoms All Other Systems: Reviewed and Negative Medications & Allergies Home Medications: Home Medication List Amlodipine Besylate 10 mg [Norvasc 10 MG] 10 mg PO DAILY 12/04/16 [History Confirmed 05/14/23] Docusate Sodium [Stool Softener] 100 mg PO DAILY 12/04/16 [History Confirmed 05/14/23] Fenofibrate 160 mg PO DAILY 12/04/16 [History Confirmed 05/14/23] Albuterol Common Canister [Ventolin Common Canister] 2 puff IH Q6HPRN PRN 05/14/23 [History Confirmed 05/14/23] Aspirin EC 81 mg [Ecotrin 81 mg] 81 mg PO DAILY 05/14/23 [History Con firmed 05/14/23] Atorvastatin Calcium [Lipitor] 80 mg PO DAILY 05/14/23 [History Confirmed 05/14/23] Carvedilol 3.125 mg [Coreg 3.125 MG] 3.125 mg PO BID 05/14/23 [History Confirmed 05/14/23] Doxazosin Mesylate 2 mg [Cardura 2 mg] 2 mg PO DAILY 05/14/23 [History Confirmed 05/14/23] Doxycycline Monohydrate 100 mg PO BID 05/14/23 [History Confirmed 05/14/23] Dutasteride 0.5 MG [Avodart 0.5 MG] 0.5 mg PO DAILY 05/14/23 [History Confirmed 05/14/23] Escitalopram Oxalate [Lexapro] 10 mg PO DAILY 05/14/23 [History Confirmed 05/14/23] Fluticasone/Umeclidin/Vilanter [Trelegy Ellipta 200-62.5-25] 1 puff PO DAILY 05/14/23 [History Confirmed 05/14/23] Furosemide 40 mg [Lasix 40 MG] 40 mg PO BID 05/14/23 [History Confirmed 05/14/23] HydrALAzine HCL 25 MG TAB [Apresoline 25 MG TABLET] 25 mg PO TID 05/14/23 [History Confirmed 05/14/23] Insulin Lispro [Humalog Kwikpen U-100] 5 unit SQ BETWEEN UNITS PRN 05/14/23 [History Confirmed 05/14/23] Insulin Lispro [Humalog Kwikpen U-100] 10 unit SQ BID 05/14/23 [History Confirmed 05/14/23] Isosorbide Mononitrate [Isosorbide Mononitrate ER] 30 mg PO DAILY 05/14/23 [History Confirmed 05/14/23] Levothyroxine Sodium 88 Mcg [Synthroid 88 Mcg] 88 mcg PO DAILY 05/14/23 [History Confirmed 05/14/23] Prednisone 10 mg [Deltasone 10 mg] See Taper PO DAILY 05/14/23 [History Confirmed 05/14/23] Riboflavin (Vitamin B2) [Riboflavin] 100 mg pe PO UD 05/14/23 [History Confirmed 05/14/23] Ticagrelor [Brilinta] 90 mg PO BID 05/14/23 [History Confirmed 05/14/23] Ubidecarenone [Co Q-10] 200 mg PO DAILY 05/14/23 [History Confirmed 05/14/23] clonazePAM 0.5 mg PO BID 05/14/23 [History Confirmed 05/14/23] Allergies/Adverse Reactions: Allergies Allergy/AdvReac Type Severity Reaction Status Date / Time celecoxib [From Celebrex] Allergy Verified 05/14/23 07:42 clarithromycin [From Biaxin] Allergy Verified 05/14/23 07:42 - Past Medical History Past Medical History: Yes Neurological History: No Pertinent History ENT History: No Pertinent History Cardiac History: Angina, Hypertension Respiratory History: Asthma, COPD Endocrine Medical History: Diabetes Type II, Hypothyroidism Musculoskelatal History: Arthritis GI Medical History: GERD, Other History: No Pertinent History Pyscho-Social History: No Pertinent History Male Reproductive Disorders: No Pertinent History Comment: hemodialysis (Dr. Hayden), NSTEMI - Past Surgical History Past Surgical History: Yes Neuro Surgical History: No Pertinent History Cardiac History: Cardiac Catheterization, Cardiac Stent, Other Respiratory Surgery: No Pertinent History GI Surgical History: Hernia Repair Genitourinary Surgical Hx: No Pertinent History Musculskeletal Surgical Hx: No Pertinent History Male Surgical History: No Pertinent History Other Surgical History: quadruple bypass 2007, dialysis permacath placement - Social History Smoking Status: Former smoker Exposure to second hand smoke: No Alcohol: None Drug Use: none - Physical Exam Vital Signs: Vital Signs - 24 hr Temp Pulse Resp BP BP Pulse Ox 05/14/23 16:00 96.7 F 66 18 142/74 99 05/14/23 12:49 67 18 97 05/14/23 11:00 63 17 136/74 97 05/14/23 10:30 162/73 97 05/14/23 10:00 65 16 140/69 97 05/14/23 09:30 65 17 140/71 98 05/14/23 09:14 95 05/14/23 09:00 65 16 144/72 97 05/14/23 08:30 70 16 156/65 96 05/14/23 08:01 75 20 151/68 90 L 05/14/23 07:43 97.4 F 71 18 155/90 95 General Appearance: no apparent distress, alert Neurologic Exam: alert, oriented x 3, cooperative, yard hostler II-XII nml as tested, normal mood/affect, nml cerebellar function Eye Exam: PERRL/EOMI, eyes nml inspection Ears, Nose, Throat Exam: normal ENT inspection Neck Exam: normal inspection, non-tender, supple, full range of motion Respiratory Exam: normal breath sounds, lungs clear Cardiovascular Exam: regular rate/rhythm, normal heart sounds Gastrointestinal/Abdomen Exam: soft, normal bowel sounds Extremity Exam: normal inspection Skin Exam: normal color Results - Other Procedures and Tests Respiratory Therapy 05/14/23 12:49 Oxygen Nasal Cannula 2 lpm Respiratory Therapy Assessment DAILY Assessment/Plan (1) Complaint of debility and malaise Current Visit: Yes Status: Acute Assessment & Plan: Needs rehab placement. CM team aware. PT eval/treat. Code(s): R53.81 - OTHER MALAISE (2) ESRD (end stage renal disease) Current Visit: Yes Status: Acute Assessment & Plan: Needs HD MWF, but this is not possible at the hospital. Transfer request placed. Will check BMP. Code(s): N18.6 - END STAGE RENAL DISEASE (3) Hypertension Current Visit: No Status: Acute Assessment & Plan: Monitor BP on current regimen Code(s): I10 - ESSENTIAL (PRIMARY) HYPERTENSION (4) History of coronary artery disease Current Visit: No Status: Acute Assessment & Plan: Continue current medications Code(s): Z86.79 - PERSONAL HISTORY OF OTHER DISEASES OF THE CIRCULATORY SYSTEM Telemedicine Encounter - Telemedicine Encounter Telemedicine Encounter: The entirety of this encounter was performed via Telemedicine"
[2023-05-14 18:37] LABS: ANION GAP 17.3 MEQ/L (5-15); Calcium 7.5 mg/dL (8.4-10.2); Creatinine 1 3.33 mg/dL (0.66-1.25); EST GLOMERULAR FILTRATION RATE 19.5 ML/MIN; Potassium 4.1 mmol/L (3.5-5.1)
--- NOTE | 2023-05-14 19:03 | TM.IN ---
Tele-Medicine Incident Note - Incident Note Tel-Medicine Incident Note: 05/14/23 190 Completed doctor to doctor communication with hospitalist (Dr. Metz) at [facility], who has accepted the patient's care. Awaiting med/surg bed. Nursing staff members are aware.
[2023-05-14] MEDS ORDERED: DOXYCYCLINE MONOHYDRATE 100 MG PO SCH (22:00)
[2023-05-14] MEDS ORDERED: Coreg 3.125 MG PO SCH (22:00)
[2023-05-14] MEDS ORDERED: NON-FORMULARY ITEM (Insulin Lispro [Humalog Kwikpen U-100] 100 UNIT/ML Insuln.Pen) SQ SCH (22:00)
[2023-05-14] MEDS ORDERED: BRILINTA PO SCH (22:00)
[2023-05-15] MEDS ORDERED: PATIENT OWN MEDICATION IH SCH ×2 (06:00→07:00)
[2023-05-15 07:08] VITALS: BP 167/76
[2023-05-15 07:25] VITALS: PULSE 75; O2SAT 95
[2023-05-15] MEDS ORDERED: NON-FORMULARY ITEM (Atorvastatin Calcium [Lipitor] 80 MG Tablet) PO SCH (10:00)
[2023-05-15] MEDS ORDERED: DOCUSATE SODIUM 100 MG PO SCH (10:00)
[2023-05-15] MEDS ORDERED: NON-FORMULARY ITEM (Ubidecarenone [Co Q-10] 200 MG Capsule) PO SCH (10:00)
[2023-05-15] MEDS ORDERED: NON-FORMULARY ITEM (Amlodipine Besylate 10 Mg [Norvasc 10 Mg] 10 MG Tablet) PO SCH (10:00)
[2023-05-15] MEDS ORDERED: DELTASONE 10 MG PO SCH (10:00)
[2023-05-15] MEDS ORDERED: NON-FORMULARY ITEM (Fluticasone/Umeclidin/Vilanter [Trelegy Ellipta 200-62.5-25] 1 EACH Bl PO SCH (10:00)
[2023-05-15] MEDS ORDERED: ECOTRIN 81 MG PO SCH (10:00)
[2023-05-15] MEDS ORDERED: NON-FORMULARY ITEM (Fenofibrate [Fenofibrate] 160 MG Tablet) PO SCH (10:00)
--- NOTE | 2023-05-15 10:15 | PCM.DS ---
Discharge Summary Date of Admission: 05/14/23 11:37 Date of Discharge: 05/15/23 Admitting Physician: MADINA GONZALEZ MD Primary Care Provider: NITA MCKAY DO Allergies Allergies celecoxib [From Celebrex] Allergy (Verified 05/14/23 07:42) clarithromycin [From Biaxin] Allergy (Verified 05/14/23 07:42) Hospital Summary - Hospital Course Hospital Course: Patient requires rehab placement but more immediately requires hemodialysis MWF, with a session due tomorrow. Patient accepted at [facility] with transfer completed. - Vitals & Intake/Output Vital Signs: Vital Signs Temperature 98.0 F 05/15/23 07:08 Pulse Rate 75 05/15/23 07:21 Respiratory Rate 16 05/15/23 07:21 Blood Pressure 167/76 05/15/23 07:08 O2 Sat by Pulse Oximetry 95 05/15/23 07:21 Intake & Output: Intake & Output 05/12/23 05/13/23 05/14/23 05/15/23 11:59 11:59 11:59 11:59 Intake Total 900 Output Total 300 Balance 600 Weight 94.5 kg 94.5 kg - Lab Result Diagrams: 05/14/23 18:18 Lab Results-Last 24 Hrs: Lab Results-Last 24 Hours 05/14/23 05/14/23 05/14/23 Range/Units 18:18 19:45 21:14 Sodium 132 L (137-145) mmol/L Potassium 4.1 (3.5-5.1) mmol/L Chloride 92 L (98-107) mmol/L Carbon Dioxide 27 (22-30) mmol/L Anion Gap 17.3 H (5-15) MEQ/L BUN 62 H (9-20) mg/dL Creatinine 3.33 H (0.66-1.25) mg/dL Estimated GFR 19.5 ML/MIN Glucose 288 H (74-106) mg/dL POC Glucometer 351 H (74 to 106) mg/dL Calcium 7.5 L (8.4-10.2) mg/dL Prealbumin 9.88 L (17.6-36.0) mg/dL 05/15/23 Range/Units 06:40 Sodium (137-145) mmol/L Potassium (3.5-5.1) mmol/L Chloride (98-107) mmol/L Carbon Dioxide (22-30) mmol/L Anion Gap (5-15) MEQ/L BUN (9-20) mg/dL Creatinine (0.66-1.25) mg/dL Estimated GFR ML/MIN Glucose (74-106) mg/dL POC Glucometer 234 H (74 to 106) mg/dL Calcium (8.4-10.2) mg/dL Prealbumin (17.6-36.0) mg/dL Micro Results-Entire Visit: Accuchecks Date 05/15/23 Time 07:07 - Procedures and Test Procedures and Tests throughout Hospitalization: Therapy Orders & Screens 05/14/23 12:49 Oxygen Nasal Cannula 2 lpm Comment: Diagnosis: debility Respiratory Therapy Assessment DAILY Comment: Diagnosis: debility 05/14/23 13:10 RT Screen per Nursing Assess ONCE Comment: Protocol Order Physician Instructions: Greater than 3 points order RT Admission Screen Reason For Exam: Triggered on Admission Diagnosis: debility Diagnosis: debility Pneumonia: No Home O2: Yes Asthma: Yes CHF: No Home CPAP/BIPAP: No Home Nebs/MDI: Yes Total Points: 14 05/14/23 17:00 PT Eval & Treat (MD Order) ONCE Reason for Eval:: debility Diagnosis: debility 05/16/23 08:00 OT Screen per Nursing Assess ONCE Comment: Protocol Order Physician Instructions: Greater than 3 points order OT Admission Screening Reason For Exam: Triggered on Admission Diagnosis: debility Open Wound/Cellutlitis/Pressure Ulcers: Yes Acute Fx/ORIF/Change in wt bearing status: Yes Severe MUSCULOSKELETAL pain: No ADL Dysfunction: Yes Acute CVA w/Hemiparesis/Hemiplegia: No Decreased Functional Mobility/Strength: Yes Sprain/Strain: No Acute Post-op Mobility Dysfunction: No Total Points: 14 PT Screen per Nursing Assess ONCE Comment: Protocol Order Physician Instructions: Greater than 3 points order PT Admission Screenin Reason For Exam: Triggered on Admission Diagnosis: debility Open Wound/Cellutlitis/Pressure Ulcers: Yes Acute Fx/ORIF/Change in wt bearing status: Yes Severe MUSCULOSKELETAL pain: No ADL Dysfunction: Yes Acute CVA w/Hemiparesis/Hemiplegia: No Decreased Functional Mobility/Strength: Yes Sprain/Strain: No Acute Post-op Mobility Dysfunction: No Total Points: 14 Final Diagnosis/Problem List - Final Discharge Diagnosis/Problem (1) Complaint of debility and malaise Status: Acute Assessment & Plan: rehab placement Code(s): R53.81 - OTHER MALAISE (2) ESRD (end stage renal disease) Status: Acute Assessment & Plan: HD MW Code(s): N18.6 - END STAGE RENAL DISEASE (3) Hypertension Status: Acute Assessment & Plan: Continue current regimen Code(s): I10 - ESSENTIAL (PRIMARY) HYPERTENSION (4) History of coronary artery disease Status: Acute Code(s): Z86.79 - PERSONAL HISTORY OF OTHER DISEASES OF THE CIRCULATORY SYSTEM - Discharge Disposition: DC TO [facility] Condition: Fair Prescriptions: No Action Docusate Sodium [Stool Softener] 100 mg PO DAILY Fenofibrate 160 mg PO DAILY Amlodipine Besylate 10 mg [Norvasc 10 MG] 10 mg PO DAILY Insulin Lispro [Humalog Kwikpen U-100] 10 unit SQ BID Fluticasone/Umeclidin/Vilanter [Trelegy Ellipta 200-62.5-25] 1 puff PO DAILY Albuterol Common Canister [Ventolin Common Canister] 2 puff IH Q6HPRN PRN PRN Reason: Shortness Of Breath/Wheezing Riboflavin (Vitamin B2) [Riboflavin] 100 mg pe PO UD Levothyroxine Sodium 88 Mcg [Synthroid 88 Mcg] 88 mcg PO DAILY Isosorbide Mononitrate [Isosorbide Mononitrate ER] 30 mg PO DAILY Escitalopram Oxalate [Lexapro] 10 mg PO DAILY Dutasteride 0.5 MG [Avodart 0.5 MG] 0.5 mg PO DAILY Doxazosin Mesylate 2 mg [Cardura 2 mg] 2 mg PO DAILY Ubidecarenone [Co Q-10] 200 mg PO DAILY clonazePAM 0.5 mg PO BID Atorvastatin Calcium [Lipitor] 80 mg PO DAILY HydrALAzine HCL 25 MG TAB [Apresoline 25 MG TABLET] 25 mg PO TID Ticagrelor [Brilinta] 90 mg PO BID Prednisone 10 mg [Deltasone 10 mg] See Taper PO DAILY Furosemide 40 mg [Lasix 40 MG] 40 mg PO BID Doxycycline Monohydrate 100 mg PO BID Carvedilol 3.125 mg [Coreg 3.125 MG] 3.125 mg PO BID Aspirin EC 81 mg [Ecotrin 81 mg] 81 mg PO DAILY Insulin Lispro [Humalog Kwikpen U-100] 5 unit SQ BETWEEN UNITS PRN PRN Reason: Hyperglycemia Forms: Ambulance Transport Record, Transfer Record Inter-Agency
[2023-05-19] MEDS ORDERED: DELTASONE 10 MG PO SCH (10:00)
[2023-05-24] MEDS ORDERED: DELTASONE 10 MG PO SCH (10:00)
== END 2023-05-15 07:30 | disposition home or self-care (01) ==
LOC: ED 07:37 → MED SURG 11:37
PROVIDERS: ADMIT Internal Medicine; ATTEND Family Medicine
DX: R53.81 Other malaise (principal); N18.6 End stage renal disease; I10 Essential (primary) hypertension; R19.7 Diarrhea, unspecified; E11.9 Type 2 diabetes mellitus without complications; E03.9 Hypothyroidism, unspecified; Z86.79 Personal history of other diseases of the circulatory system; Z79.899 Other long term (current) drug therapy; Z20.828 Contact with and (suspected) exposure to other viral communicable diseases
CPT/HCPCS: 36415; 80048; 82947; 84134; 93268; 94760; 99285; G0378; J1817; A9270-GY

== ENCOUNTER 2023-05-27 19:07 | Emergency (ER) | payer MEDICARE ==
--- NOTE | 2023-05-27 19:43 | ERPHSYRPT ---
- History of Present Illness Time Seen by Provider: 05/27/23 19:20 Historian: patient, EMS, old records Exam Limitations: no limitations Patient Subjective Stated Complaint: pt states after eating supper he began having chest pain. states he has previously been feeling nauseous and generally unwell. Triage Nursing Assessment: pt alert and oriented. answers questions approp. pt arrive per ambulance and transfers to [facility] with assist of 3. respirations nonlabored. skin warm and dry. dialysis cath to rt subclavian. heart rate 95-112 afib on monitor. Physician History: This is a 72-year-old white male patient of Dr. 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 Hayden who presents to the emergency room by ambulance service because of chest pain that occurred after eating supper today. By the time the patient arrived to the emergency department his chest pain is gone. Patient states he has no chest pain and he has no shortness of breath. He states that he feels pretty good right now. Patient has multiple medical problems including COPD, chronic low blood pressure (patient on Midodrine), end-stage renal disease following his most recent state placement on Tuesday dialysis. He received dialysis today. Patient has a history of CABG in 2007 and in March 2023 he had cardiac stents placed and after stent placement he went into renal failure. Patient has a history of hypothyroidism, insulin-dependent diabetes, hyperlipidemia and gastroesophageal reflux disease. He also is taking Brilinta. Patient received 4 baby aspirin and a single sublingual 0.4 mg nitroglycerin tablet by EMS in route to the emergency department. Timing/Duration: today Activities at Onset: none Quality: pressure (Mild) Location: substernal, central Chest Pain Radiation: arm (Tingling in bilateral hands) Severity of Pain-Max: mild Severity of Pain-Current: none Modifying Factors: Improves With: nothing Associated Symptoms: denies symptoms Prior Chest Pain/Cardiac Workup: cardiac cath, heart attack, recently seen/treated Nitro Today/Relief: 0.4 mg x 1 Aspirin Treatment Today: 81 mg x 4, provided by EMS Allergies/Adverse Reactions: celecoxib [From Celebrex] Allergy (Verified 05/27/23 19:18) clarithromycin [From Biaxin] Allergy (Verified 05/27/23 19:18) Home Medications: Docusate Sodium [Stool Softener] 100 mg PO DAILY 12/04/16 [History] Fenofibrate 160 mg PO DAILY 12/04/16 [History] Albuterol Common Canister [Ventolin Common Canister] 2 puff IH Q6HPRN PRN 05/14/23 [History] Aspirin EC 81 mg [Ecotrin 81 mg] 81 mg PO DAILY 05/14/23 [History] Atorvastatin Calcium [Lipitor] 80 mg PO DAILY 05/14/23 [History] Dutasteride 0.5 MG [Avodart 0.5 MG] 0.5 mg PO DAILY 05/14/23 [History] Escitalopram Oxalate [Lexapro] 10 mg PO DAILY 05/14/23 [History] Fluticasone/Umeclidin/Vilanter [Trelegy Ellipta 200-62.5-25] 1 puff PO DAILY 05/14/23 [History] Furosemide 40 mg [Lasix 40 MG] 40 mg PO BID 05/14/23 [History] Insulin Lispro [Humalog Kwikpen U-100] 10 unit SQ BID 05/14/23 [History] Levothyroxine Sodium 88 Mcg [Synthroid 88 Mcg] 88 mcg PO DAILY 05/14/23 [History] Ticagrelor [Brilinta] 90 mg PO BID 05/14/23 [History] Ubidecarenone [Co Q-10] 200 mg PO DAILY 05/14/23 [History] clonazePAM 0.5 mg PO BID 05/14/23 [History] Acetaminophen 325 mg [Tylenol 325 mg] 650 mg PO Q4HPRN PRN 05/27/23 [Hist ory] Bisacodyl 10 mg [Dulcolax 10 MG SUPP] 10 mg RC DAILY PRN PRN 05/27/23 [History] Cyanocobalamin 100 Mcg [Vitamin B-12 100 Mcg] 100 mcg PO DAILY 05/27/23 [History] Insulin Glargine,Hum.rec.anlog [Insulin Glargine] 12 unit SQ DAILY 05/27/23 [History] Magnesium Hydroxide 30 ml [Milk of Magnesia 30 ml] 30 ml PO DAILY PRN PRN 05/27/23 [History] Midodrine HCl [Proamatine] 5 mg PO TID 05/27/23 [History] Hx Tetanus, Diphtheria Vaccination/Date Given: Yes Hx Influenza Vaccination/Date Given: Yes Hx Pneumococcal Vaccination/Date Given: Yes Travel Risk - International Travel Have you traveled outside of the country in past 3 weeks: No - Coronavirus Screening Are you exhibiting any of the following symptoms?: No Close contact with a COVID-19 positive Pt in past 14-21 Days: No - Vaccine Status Have you recieved a Covid-19 vaccination: No 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 Resolved at the time of entrance into the emergency department) Abdominal/Gastrointestinal: No Symptoms Genitourinary Symptoms: No Symptoms Musculoskeletal: No Symptoms Skin: No Symptoms Neurological: No Symptoms Psychological: No Symptoms Endocrine: No Symptoms Hematologic/Lymphatic: No Symptoms Immunological/Allergic: No Symptoms All Other Systems: Reviewed and Negative - Past Medical History Pertinent Past Medical History: Yes Neurological History: No Pertinent History ENT History: No Pertinent History Cardiac History: Angina, Hypertension Respiratory History: Asthma, COPD Endocrine Medical History: Diabetes Type II, Hypothyroidism Musculoskeletal History: Arthritis GI Medical History: GERD, Other History: No Pertinent History Psycho-Social History: No Pertinent History Male Reproductive Disorders: No Pertinent History Other Medical History: hemodialysis (Dr. Hayden), NSTEMI - Past Surgical History Past Surgical History: Yes Neuro Surgical History: No Pertinent History Cardiac: Cardiac Catheterization, Cardiac Stent, Other Respiratory: No Pertinent History Gastrointestinal: Hernia Repair Genitourinary: No Pertinent History Musculoskeletal: No Pertinent History Male Surgical History: No Pertinent History Other Surgical History: quadruple bypass 2007, dialysis permacath placement. stents in march and april - Social History Smoking Status: Former smoker Exposure to second hand smoke: No Drug Use: none Patient Lives Alone: No () - Nursing Vital Signs Nursing Vital Signs: Initial Vital Signs Temperature 97.2 F 05/27/23 19:18 Pulse Rate 102 H 05/27/23 19:18 Respiratory Rate 18 05/27/23 19:18 Blood Pressure 112/71 05/27/23 19:18 O2 Sat by Pulse Oximetry 100 05/27/23 19:18 Pain Scale Pain Intensity 0 - Physical Exam General Appearance: no apparent distress, alert Eye Exam: PERRL/EOMI, eyes nml inspection Ears, Nose, Throat Exam: normal ENT inspection, moist mucous membranes Neck Exam: normal inspection, non-tender, supple, full range of motion Respiratory Exam: normal breath sounds, lungs clear, airway intact, No chest tenderness, No respiratory distress Cardiovascular Exam: normal heart sounds, normal peripheral pulses, irregular Gastrointestinal/Abdomen Exam: soft, normal bowel sounds, No tenderness Rectal Exam: not done Back Exam: normal inspection, normal range of motion, No CVA tenderness, No vertebral tenderness Extremity Exam: normal inspection, normal range of motion, pelvis stable Neurologic Exam: alert, oriented x 3, cooperative, 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 Atrial flutter), Left [place] Deviation, Other (Computer readout of this patient's initial twelve-lead EKG shows severe global ischemia. Patient did have a stent placed within the last month.) Ordered Tests: Active Orders 24 hr Category Date Time Status Naturopath STAT Care 05/27/23 19:21 Active EKG-ER Only STAT Care 05/27/23 19:20 Active IV Insertion STAT Care 05/27/23 19:20 Active Pulse Oximetry (ED) STAT Care 05/27/23 19:20 Active CHEST 1 VIEW (PORTABLE) Stat Exams 05/27/23 19:20 Taken CBC W DIFF Stat Lab 05/27/23 19:40 Completed CMP Stat Lab 05/27/23 19:40 Completed NT PRO BNPII Stat Lab 05/27/23 19:40 Received TROPONIN Q4H Lab 05/27/23 19:40 Received TROPONIN Q4H Lab 05/27/23 23:30 Ordered TROPONIN Q4H Lab 05/28/23 03:30 Ordered Lab/Rad Data: Laboratory Result Diagrams 05/27/23 19:40 05/27/23 19:40 Laboratory Results 05/27/23 05/27/23 Range/Units 19:40 19:40 WBC 8.5 (4.0-10.5) x10^3/uL RBC 3.15 L (4.1-5.6) x10^6/uL Hgb 8.7 L (12.5-18.0) g/dL Hct 27.6 L (42-50) % MCV 87.6 (78-100) fL MCH 27.6 (26-32) pg MCHC 31.5 L (32-36) g/dL RDW 13.8 (11.5-14.0) % Plt Count 320 (150-450) x10^3/uL MPV 10.3 (7.5-11.0) fL Gran % 81.4 H (36.0-66.0) % Immature Gran % (Auto) 0.4 (0.00-0.4) % Nucleat RBC Rel Count 0.0 (0.00-0.1) % Eos # (Auto) 0.10 (0-0.5) x10^3/uL Immature Gran # (Auto) 0.03 (0.00-0.03) x10^3u/L Absolute Lymphs (auto) 0.67 L (1.0-4.6) x10^3/uL Absolute Monos (auto) 0.73 (0.0-1.3) x10^3/uL Absolute Nucleated RBC 0.00 (0.00-0.01) x10^3u/L Lymphocytes % 7.9 L (24.0-44.0) % Monocytes % 8.6 (0.0-12.0) % Eosinophils % 1.2 (0.00-5.0) % Basophils % 0.5 (0.0-0.4) % Absolute Granulocytes 6.94 H (1.4-6.9) x10^3/uL Basophils # 0.04 (0-0.4) x10^3/uL Sodium 130 L (137-145) mmol/L Potassium 3.5 (3.5-5.1) mmol/L Chloride 89 L (98-107) mmol/L Carbon Dioxide 34 H (22-30) mmol/L Anion Gap 10.2 (5-15) MEQ/L BUN 13 (9-20) mg/dL Creatinine 2.01 H (0.66-1.25) mg/dL Estimated GFR 34.9 ML/MIN Glucose 226 H (74-106) mg/dL Calcium 7.8 L (8.4-10.2) mg/dL Total Bilirubin 0.80 (0.2-1.3) mg/dL AST 29 (17-59) U/L ALT 19 (0-50) U/L Alkaline Phosphatase 67 (38-126) U/L Serum Total Protein 6.8 (6.3-8.2) g/dL Albumin 3.0 L (3.5-5.0) g/dL - Progress Progress: improved, re-examined Air Movement: good Progress Note: 05/27/23 19:46 Patient denies chest pain or shortness of breath at this time. The twelve-lead EKG was repeated his heart rate is 104 shows atrial flutter with predominant 3-1 AV block and nonspecific repolarization abnormality diffusely. There is prolonged QT interval. 05/27/23 20:44 I had a long discussion with the patient and his spouse regarding disposition. I recommended that the patient be transferred to [facility] where his juke box servicer and manager communication are. The patient states that he is actually feeling pretty good. He does not have chest pain he is not short of breath. We did discuss the risk of going back to the halfway and not being monitored over the the next 24 to 48 hours in an inpatient setting. He understands the risks involved and has chosen to sign an AGAINST MEDICAL ADVICE form. His medical issue is 1 of moderate complexity. Level of complexity and the work-up performed was based on the patient's past medical history, review of the patient's medication list, review of the history of present illness and physical findings on examination. The work-up includes twelve-lead EKG, troponin, BNP, chest x-ray, CBC and CMP. Patient desires to be discharged to the halfway where he is staying. He will sign out AGAINST MEDICAL ADVICE form. Patient states that he has already spent too much time in the hospital. 05/27/23 20:46 Blood Culture(s) Obtained: No Antibiotics given: No Counseled pt/family regarding: lab results, diagnosis, rad results Medical Desision Making - Independent Historian Additional History obtained from: Spouse - Diagnostic Testing Diagnostic test were ordered, analyzed, and reviewed by me: Yes Radiological Interpretation: Interpreted by me - Risk of complications The pt has a high risk of morbidity or mortality based on: Decision regarding hospitilization or escalation of hosp level of care (Patient is refusing.) - Departure Departure Disposition: AMA Clinical Impression: Atrial flutter, Renal failure, Elevated troponin, Elevated brain natriuretic peptide (BNP) level Condition: Fair Critical Care Time: No Referrals: NITA MCKAY DO [Primary Care Provider] - Follow up/PCP as directed Additional Instructions: Call your juke box servicer and primary care physician on Tuesday05/30/2023. Return to the emergency department if symptoms recur. Take your medications as prescribed. Have the halfway contact your prescribing physician for treatment of insomnia at the halfway.
[2023-05-27 19:49] LABS: Absolute Neutrophil Ct (ANC) 6.94 x10^3/uL (1.4-6.9); BASOPHIL % 0.5 % (0.0-0.4); Basophil (Absolute #) 0.04 x10^3/uL (0-0.4); Eosinophil % 1.2 % (0.00-5.0); Hematocrit 27.6 % (42-50); Hemoglobin 8.7 g/dL (12.5-18.0); IMMATURE GRAN # 0.03 x10^3u/L (0.00-0.03); IMMATURE GRAN % 0.4 % (0.00-0.4); Lymphocyte (Absolute #) 0.67 x10^3/uL (1.0-4.6); Lymphocytes % 7.9 % (24.0-44.0); Mean Cell Volume 87.6 fL (78-100); Mean Corpuscular Hemoglobin 27.6 pg (26-32); Mean Corpuscular Hgb Concent. 31.5 g/dL (32-36); Mean Platelet Volume 10.3 fL (7.5-11.0); Monocyte (Absolute #) 0.73 x10^3/uL (0.0-1.3); Monocytes % 8.6 % (0.0-12.0); Neutrophil % 81.4 % (36.0-66.0); Platelet Count 320 x10^3/uL (150-450); Red Blood Count 3.15 x10^6/uL (4.1-5.6); Red Cell Distribution Width 13.8 % (11.5-14.0); White Blood Count 8.5 x10^3/uL (4.0-10.5)
[2023-05-27 20:05] LABS: ANION GAP 10.2 MEQ/L (5-15); BILIRUBIN,TOTAL 0.8 mg/dL (0.2-1.3); Calcium 7.8 mg/dL (8.4-10.2); Creatinine 1 2.01 mg/dL (0.66-1.25); EST GLOMERULAR FILTRATION RATE 34.9 ML/MIN; Potassium 3.5 mmol/L (3.5-5.1); Total Protein 6.8 g/dL (6.3-8.2)
[2023-05-27 20:21] VITALS: BP 140/84; PULSE 91
[2023-05-27 20:49] VITALS: O2SAT 99
[2023-05-27] MEDS: Restoril 15 MG PO ONE (22:04)
--- NOTE | 2023-05-27 22:12 | XRAY ---
Indication: Atrial fibrillation with RVR. Comparison: September 02, 2022 Portable chest demonstrates new cardiomegaly and new small right pleural effusion/atelectasis favoring cardiac decompensation/CHF. Superimposed pneumonia not completely excluded. Again CABG surgery with new right double lumen dialysis catheter. Bony thorax intact again with osteopenia and degenerative changes.
== END 2023-05-27 23:16 | disposition short-term general hospital (02) ==
LOC: ED 19:07
DX: I48.92 Unspecified atrial flutter (principal); I13.2 Hypertensive heart and chronic kidney disease with heart failure and with stage 5 chronic kidney disease, or end stage renal disease; E11.22 Type 2 diabetes mellitus with diabetic chronic kidney disease; N18.6 End stage renal disease; I50.9 Heart failure, unspecified; R77.8 Other specified abnormalities of plasma proteins; R79.89 Other specified abnormal findings of blood chemistry; J90 Pleural effusion, not elsewhere classified; D64.9 Anemia, unspecified; R07.9 Chest pain, unspecified; E78.5 Hyperlipidemia, unspecified; Z99.2 Dependence on renal dialysis; Z79.02 Long term (current) use of antithrombotics/antiplatelets; Z79.4 Long term (current) use of insulin; Z79.899 Other long term (current) drug therapy
CPT/HCPCS: 36000; 36415; 71045; 80053; 83880; 84484; 85025; 93005; 93041; 94760; 99285; A9270-GY

== ENCOUNTER 2023-09-01 09:58 | Emergency (ER) | payer MEDICARE, SELFPAY ==
--- NOTE | 2023-09-01 10:04 | ERPHSYRPT ---
- History of Present Illness Time Seen by Provider: 09/01/23 10:04 Source: patient, family Exam Limitations: no limitations Physician History: This is a 72-year-old white male patient who arrives to the emergency department just after falling in a parking lot prior to arrival to emergency department. Patient is on anticoagulation therapy and he hit his head. There is a small skin laceration to his scalp and a skin tear of the dorsal aspect of his right hand. Patient has a history of COPD/asthma, chronic low blood pressure, end- stage renal disease (Tuesday dialysis) coronary artery disease (cardiac stent and CABG) hypothyroidism, insulin-dependent diabetes, hyperlipidemia, gastroesophageal reflux disease. Patient denies chest pain. Patient denies shortness of breath. Patient states he was getting into his car. He has difficulty raising his leg and gravity pulled him back when he could not raise his leg enough to get into the car and he fell backwards. Patient was not dizzy prior to him falling backwards. Patient was holding onto the steering well but his weight pulled him backwards causing him to let go of the steering well Occurred: just prior to arrival Reason for Fall: fell from standing pos Injuries/Pain Location: head, upper extremity Loss of Consciousness: no loss of consciousness Quality: aching Severity of Pain-Max: mild Severity of Pain-Current: mild Modifying Factors: Improves With: nothing Associated Symptoms (Fall): headache Allergies/Adverse Reactions: celecoxib [From Celebrex] Allergy (Verified 05/27/23 19:18) clarithromycin [From Biaxin] Allergy (Verified 05/27/23 19:18) Home Medications: Docusate Sodium [Stool Softener] 100 mg PO DAILY 12/04/16 [History] Fenofibrate 160 mg PO DAILY 12/04/16 [History] Albuterol Common Canister [Ventolin Common Canister] 2 puff IH Q6HPRN PRN 05/14/23 [History] Aspirin EC 81 mg [Ecotrin 81 mg] 81 mg PO DAILY 05/14/23 [History] Atorvastatin Calcium [Lipitor] 80 mg PO DAILY 05/14/23 [History] Dutasteride 0.5 MG [Avodart 0.5 MG] 0.5 mg PO DAILY 05/14/23 [History] Escitalopram Oxalate [Lexapro] 10 mg PO DAILY 05/14/23 [History] Fluticasone/Umeclidin/Vilanter [Trelegy Ellipta 200-62.5-25] 1 puff PO DAILY 05/14/23 [History] Furosemide 40 mg [Lasix 40 MG] 40 mg PO BID 05/14/23 [History] Insulin Lispro [Humalog Kwikpen U-100] 10 unit SQ BID 05/14/23 [History] Levothyroxine Sodium 88 Mcg [Synthroid 88 Mcg] 88 mcg PO DAILY 05/14/23 [History] Ticagrelor [Brilinta] 90 mg PO BID 05/14/23 [History] Ubidecarenone [Co Q-10] 200 mg PO DAILY 05/14/23 [History] clonazePAM 0.5 mg PO BID 05/14/23 [History] Acetaminophen 325 mg [Tylenol 325 mg] 650 mg PO Q4HPRN PRN 05/27/23 [History] Bisacodyl 10 mg [Dulcolax 10 MG SUPP] 10 mg RC DAILY PRN PRN 05/27/23 [History] Cyanocobalamin 100 Mcg [Vitamin B-12 100 Mcg] 100 mcg PO DAILY 05/27/23 [History] Insulin Glargine,Hum.rec.anlog [Insulin Glargine] 12 unit SQ DAILY 05/27/23 [History] Magnesium Hydroxide 30 ml [Milk of Magnesia 30 ml] 30 ml PO DAILY PRN PRN 05/27/23 [History] Midodrine HCl [Proamatine] 5 mg PO TID 05/27/23 [History] Apixaban [Eliquis] 5 mg PO DAILY 09/01/23 [History] Hx Tetanus, Diphtheria Vaccination/Date Given: Yes Hx Influenza Vaccination/Date Given: Yes Hx Pneumococcal Vaccination/Date Given: Yes Travel Risk - International Travel Have you traveled outside of the country in past 3 weeks: No - Coronavirus Screening Are you exhibiting any of the following symptoms?: No Close contact with a COVID-19 positive Pt in past 14-21 Days: No - Vaccine Status Have you recieved a Covid-19 vaccination: No Can Doffer: Pfizer - Vaccination Dates Date of 2cond Vaccination (if applicable): 2020 - Review of Systems Constitutional: No Symptoms Eyes: No Symptoms Ears, Nose, & Throat: No Symptoms Respiratory: No Symptoms Cardiac: No Symptoms Abdominal/Gastrointestinal: No Symptoms Genitourinary Symptoms: No Symptoms Musculoskeletal: No Symptoms Skin: Other (Small occipital region skin laceration, skin tear dorsal aspect right hand) Neurological: No Symptoms Psychological: No Symptoms Endocrine: No Symptoms Hematologic/Lymphatic: No Symptoms Immunological/Allergic: No Symptoms All Other Systems: Reviewed and Negative - Past Medical History Pertinent Past Medical History: Yes Neurological History: No Pertinent History ENT History: No Pertinent History Cardiac History: Angina, Hypertension Respiratory History: Asthma, COPD Endocrine Medical History: Diabetes Type II, Hypothyroidism Musculoskeletal History: Arthritis GI Medical History: GERD, Other History: No Pertinent History Psycho-Social History: No Pertinent History Male Reproductive Disorders: No Pertinent History Other Medical History: hemodialysis (Dr. Hayden), NSTEMI - Past Surgical History Past Surgical History: Yes Neuro Surgical History: No Pertinent History Cardiac: Cardiac Catheterization, Cardiac Stent, Other Respiratory: No Pertinent History Gastrointestinal: Hernia Repair Genitourinary: No Pertinent History Musculoskeletal: No Pertinent History Male Surgical History: No Pertinent History Other Surgical History: quadruple bypass 2007, dialysis permacath placement. stents in march and april - Social History Smoking Status: Former smoker Exposure to second hand smoke: No Drug Use: none Patient Lives Alone: No () - Nursing Vital Signs Nursing Vital Signs: Initial Vital Signs Temperature 97.2 F 09/01/23 10:04 Pulse Rate 60 09/01/23 10:04 Respiratory Rate 20 09/01/23 10:04 Blood Pressure 170/97 09/01/23 10:04 O2 Sat by Pulse Oximetry 99 09/01/23 10:04 Pain Scale Pain Intensity 0 - Halina Coma Score Best Eye Response ([place]): (4) open spontaneously Best Verbal Response ([place]): (5) oriented Best Motor Response ([place]): (6) obeys commands [place]ina Total: 15 - Physical Exam General Appearance: no apparent distress, alert, anxiety Head Injury: lacerations (Small occipital region skin laceration. No foreign body no active bleeding) Eye Exam: PERRL/EOMI, eyes nml inspection ENT Exam: airway nml, nml ext.inspection, No evidence of ENT injury Neck Exam: supple, trachea midline, full range of motion, normal alignment, normal inspection Respiratory/Chest Exam: normal breath sounds, No chest tenderness, No respiratory distress, No ecchymosis, No crepitus Cardiovascular Exam: normal heart sounds, regular rate/rhythm Gastrointestinal Exam: soft, normal bowel sounds, No tenderness Rectal Exam: not done Back Exam: normal inspection, normal range of motion, No CVA tenderness, No vertebral tenderness Extremity Exam: normal range of motion, other (Skin tear dorsal aspect right hand) Neurologic Exam: alert, oriented x 3, cooperative, 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, normal mood/affect, sensation nml Skin Exam: warm, dry, laceration (Occipital region skin laceration measuring approximately 1 cm.), other (Skin tear dorsal aspect) SpO2 Interpretation: normal O2 Delivery: Room Air - Course Nursing assessment & vital signs reviewed: Yes Ordered Tests: Active Orders 24 hr Category Date Time Status CERVICAL SPINE WO CONTRAST [CT] Stat Exams 09/01/23 10:07 Completed HEAD WITHOUT CONTRAST [CT] Stat Exams 09/01/23 10:07 Completed POCT GLUCOSE Stat Lab 09/01/23 10:06 Completed Medication Summary Discontinued Medications Generic Name Dose Route Start Last Admin Trade Name Freq PRN Reason Stop Dose Admin Diphtheria/Tetanus/Acell Pertussis 0.5 ml 09/01/23 10:39 09/01/23 10:41 Tdap --Diph,Pertuss(Acell),Tet Vac/Pf 0.5 Ml Vial IM 09/01/23 10:40 0.5 ml .ONCE ONE Administration Diphtheria/Tetanus/Acell Pertussis Confirm 09/01/23 10:40 Tdap --Diph,Pertuss(Acell),Tet Vac/Pf 0.5 Ml Vial Administered 09/01/23 10:41 Dose 0.5 ml IM .STK-MED ONE Lab/Rad Data: Laboratory Results 09/01/23 Range/Units 10:06 POC Glucometer 172 H (74 to 106) mg/dL - Progress Progress: improved, re-examined Progress Note: 09/01/23 10:13 This patient's medical issue is 1 of low complexity. Level complex in the work- up performed based on review of the patient's past medical history, review the patient's medication list, review of the the patient's drug allergy list, history of present illness and physical findings on examination. This patient's work-up includes CT scan of the head and CT scan of cervical spine both without contrast. 09/01/23 12:14 CT scan of the head without contrast was interpreted by the radiologist and I reviewed the impression. There is no evidence of any acute intracranial abnormality. CT scan of the cervical spine without contrast shows multilevel degenerative changes without any acute fracture or subluxation. Counseled pt/family regarding: lab results, diagnosis, need for follow-up, rad results Medical Desision Making - Independent Historian Additional History obtained from: Spouse - Diagnostic Testing Diagnostic test were ordered, analyzed, and reviewed by me: Yes Radiological Interpretation: Reviewed by me, Teleradiologist Report - Risk of complications Low Risk: Low risk of morbidity from additional dx testing or treatment - Departure Departure Disposition: Home Clinical Impression: Fall with no significant injury, Skin abrasion Condition: Stable Critical Care Time: No Referrals: NITA MCKAY, [NON-STAFF PHY W/O PRIVILEGES] - Follow up/PCP as directed Additional Instructions: Take your medication as prescribed. Keep all abrasion sites clean with soap and water. May apply antibiotic ointment of choice to all sites daily. With regard to your abrasion/skin tear of your right hand, keep the current pressure dressing in place until the evening of 09/02/2023. At that time may remove the dressing and wash the site as above. Follow-up with your primary care provider for further evaluation management.
[2023-09-01 10:09] VITALS: TEMP 97.2
[2023-09-01] MEDS ORDERED: Adacel Vial IM ONE ×2 (10:39→10:40)
[2023-09-01 10:52] VITALS: O2SAT 97
[2023-09-01 11:13] VITALS: BP 163/77
--- NOTE | 2023-09-01 12:02 | XRAY ---
Indication: Posterior head injury following fall. Multiple contiguous axial images obtained through the head without contrast. Comparison: None Age-appropriate global atrophy. No acute intracranial hemorrhage, abnormal extra-axial fluid collection, or mass effect. Fourth ventricle is midline without hydrocephalus. Baron-white matter differentiation preserved. Bony calvarium intact. Visualized paranasal sinuses and mastoid air cells are clear. Impression: Negative CT head without contrast exam.
--- NOTE | 2023-09-01 12:07 | XRAY ---
Indication: Posterior head injury following fall. Multiple contiguous axial images obtained through the cervical spine. Sagittal and coronal reformatted images obtained. Comparison: None Age-related osteopenia. Axial images negative for acute fracture, suspicious bony lesions, or spinal canal stenosis. Mild multilevel C3-C7 degenerative endplate spurring and moderate multilevel bilateral degenerative facet hypertrophy. Sagittal and coronal reformatted images demonstrates normal alignment with disc spaces maintained. No acute compression fracture, subluxation, or jumped facet. Normal appearing craniocervical junction. Visualized noncontrasted soft tissues demonstrates mild bilateral carotid calcifications and partially visualized right double lumen dialysis catheter. Impression: 1. Negative acute fracture/subluxation. 2. Osteopenia, multilevel degenerative changes, and bilateral carotid calcifications.
[2023-09-01 12:16] VITALS: PULSE 51; RESP 16
== END 2023-09-01 12:24 | disposition home or self-care (01) ==
LOC: ED 09:58
DX: S60.511A Abrasion of right hand, initial encounter (principal); S01.01XA Laceration without foreign body of scalp, initial encounter; W18.39XA Other fall on same level, initial encounter; Y92.481 Parking lot as the place of occurrence of the external cause; E11.22 Type 2 diabetes mellitus with diabetic chronic kidney disease; N18.6 End stage renal disease; E78.5 Hyperlipidemia, unspecified; Z79.4 Long term (current) use of insulin; Z79.02 Long term (current) use of antithrombotics/antiplatelets; Z79.01 Long term (current) use of anticoagulants; Z79.899 Other long term (current) drug therapy; Z23 Encounter for immunization
CPT/HCPCS: 70450; 72125; 82947; 90471; 90715; 99283

== ENCOUNTER 2023-09-06 13:59 | Emergency (ER) | payer MEDICARE ==
[2023-09-06 14:20] VITALS: RESP 18; TEMP 97.6
[2023-09-06 15:08] VITALS: O2SAT 97
[2023-09-06 15:16] LABS: Absolute Neutrophil Ct (ANC) 2.96 x10^3/uL (1.4-6.9); BASOPHIL % 1.1 % (0.0-0.4); Basophil (Absolute #) 0.05 x10^3/uL (0-0.4); Eosinophil (Absolute #) 0.13 x10^3/uL (0-0.5); Hematocrit 37.2 % (42-50); Hemoglobin 11.6 g/dL (12.5-18.0); IMMATURE GRAN # 0.01 x10^3u/L (0.00-0.03); IMMATURE GRAN % 0.2 % (0.00-0.4); Lymphocyte (Absolute #) 0.78 x10^3/uL (1.0-4.6); Lymphocytes % 17.8 % (24.0-44.0); Mean Corpuscular Hemoglobin 28.4 pg (26-32); Mean Corpuscular Hgb Concent. 31.2 g/dL (32-36); Mean Platelet Volume 11.9 fL (7.5-11.0); Monocyte (Absolute #) 0.44 x10^3/uL (0.0-1.3); Monocytes % 10.1 % (0.0-12.0); Neutrophil % 67.8 % (36.0-66.0); Platelet Count 210 x10^3/uL (150-450); Red Blood Count 4.09 x10^6/uL (4.1-5.6); Red Cell Distribution Width 16.6 % (11.5-14.0); White Blood Count 4.4 x10^3/uL (4.0-10.5)
--- NOTE | 2023-09-06 15:16 | XRAY ---
Indication: Status post fall. Multiple contiguous axial images obtained through the head without contrast. Comparison: September 01, 2023 Again age-appropriate global atrophy. No acute intracranial hemorrhage, abnormal extra-axial fluid collection, or mass effect are fourth ventricle is midline without hydrocephalus. Baron-white matter differentiation preserved. Bony calvarium intact. Visualized paranasal sinuses and mastoid air cells are clear. Impression: Continued negative CT head without contrast exam compared to ER exam 5 days ago.
[2023-09-06 15:31] LABS: ALBUMIN 3.9 g/dL (3.5-5.0); ANION GAP 17.2 MEQ/L (5-15); BILIRUBIN,TOTAL 0.6 mg/dL (0.2-1.3); Calcium 8.7 mg/dL (8.4-10.2); Creatinine 1 3.2 mg/dL (0.66-1.25); EST GLOMERULAR FILTRATION RATE 20.4 ML/MIN; Potassium 4.9 mmol/L (3.5-5.1); Total Protein 6.4 g/dL (6.3-8.2)
--- NOTE | 2023-09-06 15:45 | ERPHSYRPT ---
- History of Present Illness Time Seen by Provider: 09/06/23 14:20 Source: patient, foreign language interpreter Exam Limitations: no limitations Patient Subjective Stated Complaint: pt states that he was walking out of [email or web address] when his cane moved out from him and he hit his head on the ground. 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 Patient produces urine. Patient presents to our ED v [facility] for evaluation status post fall and facial trauma. Patient was walking out of [email or web address]. Patient stepped down a curb using his cane. Patient states his legs felt weak and he fell forward onto his face. Patient is currently on Eliquis. Patient has a left forehead hematoma. No LOC. Patient arrived collared not boarded. Cervical spine cleared clinically. Cervical collar removed. The fall was not associated with any neuro cardiovascular symptomology. No chest pain or shortness of breath. No nausea vomiting or diaphoresis. No numbness tingling or weakness. Patient states he fell about a week ago as well. Patient's legs felt weak however he states that he did not re ceive any work-up. Although patient did receive a CT of his head that was negative. at bedside. They voiced no other complaints or concerns at this time. Fall/injury occurred just prior to arrival Portions of this note were created with voice recognition technology. There may be grammatical, spelling, punctuation or sound alike errors Timing/Duration: today Severity: moderate Modifying Factors: Improves With: nothing Associated Symptoms: denies symptoms Allergies/Adverse Reactions: celecoxib [From Celebrex] Allergy (Verified 09/06/23 14:07) clarithromycin [From Biaxin] Allergy (Verified 09/06/23 14:07) Home Medications: Docusate Sodium [Stool Softener] 100 mg PO DAILY 12/04/16 [History] Fenofibrate 160 mg PO DAILY 12/04/16 [History] Albuterol Common Canister [Ventolin Common Canister] 2 puff IH Q6HPRN PRN 05/14/23 [History] Aspirin EC 81 mg [Ecotrin 81 mg] 81 mg PO DAILY 05/14/23 [History] Atorvastatin Calcium [Lipitor] 80 mg PO DAILY 05/14/23 [History] Dutasteride 0.5 MG [Avodart 0.5 MG] 0.5 mg PO DAILY 05/14/23 [History] Escitalopram Oxalate [Lexapro] 10 mg PO DAILY 05/14/23 [History] Fluticasone/Umeclidin/Vilanter [Trelegy Ellipta 200-62.5-25] 1 puff PO DAILY 05/14/23 [History] Furosemide 40 mg [Lasix 40 MG] 40 mg PO BID 05/14/23 [History] Insulin Lispro [Humalog Kwikpen U-100] 10 unit SQ BID 05/14/23 [History] Levothyroxine Sodium 88 Mcg [Synthroid 88 Mcg] 88 mcg PO DAILY 05/14/23 [History] Ticagrelor [Brilinta] 90 mg PO BID 05/14/23 [History] Ubidecarenone [Co Q-10] 200 mg PO DAILY 05/14/23 [History] clonazePAM 0.5 mg PO BID 05/14/23 [History] Acetaminophen 325 mg [Tylenol 325 mg] 650 mg PO Q4HPRN PRN 05/27/23 [History] Bisacodyl 10 mg [Dulcolax 10 MG SUPP] 10 mg RC DAILY PRN PRN 05/27/23 [History] Cyanocobalamin 100 Mcg [Vitamin B-12 100 Mcg] 100 mcg PO DAILY 05/27/23 [History] Insulin Glargine,Hum.rec.anlog [Insulin Glargine] 12 unit SQ DAILY 05/27/23 [History] Magnesium Hydroxide 30 ml [Milk of Magnesia 30 ml] 30 ml PO DAILY PRN PRN 05/27/23 [History] Midodrine HCl [Proamatine] 5 mg PO TID 05/27/23 [History] Apixaban [Eliquis] 5 mg PO DAILY 09/01/23 [History] Hx Tetanus, Diphtheria Vaccination/Date Given: Yes Hx Influenza Vaccination/Date Given: Yes Hx Pneumococcal Vaccination/Date Given: Yes Travel Risk - International Travel Have you traveled outside of the country in past 3 weeks: No - Coronavirus Screening Are you exhibiting any of the following symptoms?: No Close contact with a COVID-19 positive Pt in past 14-21 Days: No - Vaccine Status Have you recieved a Covid-19 vaccination: No 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: [employer] - Vaccination Dates Date of 2cond Vaccination (if applicable): 2020 - Review of Systems Constitutional: No Symptoms, No Fever, No Chills Eyes: No Symptoms Ears, Nose, & Throat: No Symptoms Respiratory: No Symptoms, No Cough, No Dyspnea Cardiac: No Symptoms, No Chest Pain, No Edema, No Syncope Abdominal/Gastrointestinal: No Symptoms, No Abdominal Pain, No Nausea, No Vomiting, No Diarrhea Genitourinary Symptoms: No Symptoms, No Dysuria Musculoskeletal: No Symptoms, No Back Pain, No Neck Pain Skin: No Symptoms, No Rash Neurological: No Symptoms, No Dizziness, No Focal Weakness, No Sensory Changes Psychological: No Symptoms Endocrine: No Symptoms Hematologic/Lymphatic: No Symptoms Immunological/Allergic: No Symptoms All Other Systems: Reviewed and Negative - Past Medical History Pertinent Past Medical History: Yes Neurological History: No Pertinent History ENT History: No Pertinent History Cardiac History: Angina, Hypertension Respiratory History: Asthma, COPD Endocrine Medical History: Diabetes Type II, Hypothyroidism Musculoskeletal History: Arthritis GI Medical History: GERD, Other History: No Pertinent History Psycho-Social History: No Pertinent History Male Reproductive Disorders: No Pertinent History Other Medical History: hemodialysis (Dr. Hayden), NSTEMI - Past Surgical History Past Surgical History: Yes Neuro Surgical History: No Pertinent History Cardiac: Cardiac Catheterization, Cardiac Stent, Other Respiratory: No Pertinent History Gastrointestinal: Hernia Repair Genitourinary: No Pertinent History Musculoskeletal: No Pertinent History Male Surgical History: No Pertinent History Other Surgical History: quadruple bypass 2007, dialysis permacath placement. stents in march and april - Social History Smoking Status: Former smoker Exposure to second hand smoke: No Drug Use: none Patient Lives Alone: No () - Nursing Vital Signs Nursing Vital Signs: Initial Vital Signs Temperature 97.6 F 09/06/23 14:00 Pulse Rate 61 09/06/23 14:00 Respiratory Rate 18 09/06/23 14:00 Blood Pressure 169/85 09/06/23 14:00 O2 Sat by Pulse Oximetry 97 09/06/23 14:00 Pain Scale Pain Intensity 4 - Physical Exam General Appearance: no apparent distress, alert Eye Exam: PERRL/EOMI, eyes nml inspection Ears, Nose, Throat Exam: normal ENT inspection, TMs normal, pharynx normal, moist mucous membranes Neck Exam: normal inspection, non-tender, supple, full range of motion Respiratory Exam: normal breath sounds, lungs clear, airway intact, No respiratory distress Cardiovascular Exam: regular rate/rhythm, normal heart sounds, normal peripheral pulses Gastrointestinal/Abdomen Exam: soft, normal bowel sounds, No tenderness, No mass Back Exam: normal inspection, normal range of motion, No CVA tenderness, No vertebral tenderness Extremity Exam: normal inspection, normal range of motion, pelvis stable Neurologic Exam: alert, oriented x 3, cooperative, normal mood/affect, nml cerebellar function, nml station & gait, sensation nml, No motor deficits Skin Exam: normal color, warm, dry, other (Superficial abrasion to right knee and right hand. No open or draining lesions.), No rash Lymphatic Exam: No adenopathy SpO2 Interpretation: normal SpO2: 97 O2 Delivery: Room Air - Course Nursing assessment & vital signs reviewed: Yes EKG Interpreted by Me: RATE (58), Sinus Rhythm, Left [place] Deviation, NORMAL INTERVALS - CT Exams Head CT Interpretation: Tele-radiologist Report (No acute findings) Ordered Tests: Active Orders 24 hr Category Date Time Status Correctional Officer STAT Care 09/06/23 14:33 Active EKG-ER Only STAT Care 09/06/23 14:32 Active IV Insertion STAT Care 09/06/23 14:32 Active Pulse Oximetry (ED) STAT Care 09/06/23 14:32 Active HEAD WITHOUT CONTRAST [CT] Stat Exams 09/06/23 14:35 Completed CBC W DIFF Stat Lab 09/06/23 15:00 Completed CMP Stat Lab 09/06/23 15:00 Completed Lab/Rad Data: Laboratory Result Diagrams 09/06/23 15:00 09/06/23 15:00 Laboratory Results 09/06/23 09/06/23 Range/Units 15:00 15:00 WBC 4.4 (4.0-10.5) x10^3/uL RBC 4.09 L (4.1-5.6) x10^6/uL Hgb 11.6 L (12.5-18.0) g/dL Hct 37.2 L (42-50) % MCV 91.0 (78-100) fL MCH 28.4 (26-32) pg MCHC 31.2 L (32-36) g/dL RDW 16.6 H (11.5-14.0) % Plt Count 210 (150-450) x10^3/uL MPV 11.9 H (7.5-11.0) fL Gran % 67.8 H (36.0-66.0) % Immature Gran % (Auto) 0.2 (0.00-0.4) % Nucleat RBC Rel Count 0.0 (0.00-0.1) % Eos # (Auto) 0.13 (0-0.5) x10^3/uL Immature Gran # (Auto) 0.01 (0.00-0.03) x10^3u/L Absolute Lymphs (auto) 0.78 L (1.0-4.6) x10^3/uL Absolute Monos (auto) 0.44 (0.0-1.3) x10^3/uL Absolute Nucleated RBC 0.00 (0.00-0.01) x10^3u/L Lymphocytes % 17.8 L (24.0-44.0) % Monocytes % 10.1 (0.0-12.0) % Eosinophils % 3.0 (0.00-5.0) % Basophils % 1.1 (0.0-0.4) % Absolute Granulocytes 2.96 (1.4-6.9) x10^3/uL Basophils # 0.05 (0-0.4) x10^3/uL Sodium 139 (137-145) mmol/L Potassium 4.9 (3.5-5.1) mmol/L Chloride 99 (98-107) mmol/L Carbon Dioxide 28 (22-30) mmol/L Anion Gap 17.2 H (5-15) MEQ/L BUN 40 H (9-20) mg/dL Creatinine 3.20 H (0.66-1.25) mg/dL Estimated GFR 20.4 ML/MIN Glucose 165 H (74-106) mg/dL Calcium 8.7 (8.4-10.2) mg/dL Total Bilirubin 0.60 (0.2-1.3) mg/dL AST 118 H (17-59) U/L ALT 68 H (0-50) U/L Alkaline Phosphatase 59 (38-126) U/L Serum Total Protein 6.4 (6.3-8.2) g/dL Albumin 3.9 (3.5-5.0) g/dL - Progress Progress: improved Progress Note: Patient is a 72-year-old male on hemodialysis presents to our ED for evaluation status post fall. Pt declined pain medication. Physical exam reveals a left forehead hematoma. Neurologic exam within normal limits. Patient has multiple scrapes and some superficial bruising to his extremities, abrasion to the right knee. Patient declined x-rays to these areas. Patient feels x-rays are not needed. However he agrees to CT head. Patient advised that he has been feeling somewhat weak. Work-up obtained. No significant abnormalities. BUN and creatinine elevated as this is expected due to end-stage renal disease. Potassium within normal limits. CT head negative for acute intracranial pathology. EKG normal sinus rhythm. Patient ambulated throughout our ED. No problems. Patient believes his fall was secondary to a misstep as he was descending a curb. Patient requesting discharge Complexity of problem addressed is moderate acute complicated Complex of data reviewed and analyzed is moderate. Test ordered test reviewed. Test results analyzed including imaging study. Clinical correlation made between the findings and history and physical exam. Risk of complication and or risk of morbidity/mortality of patient management is low. Patient discharged home. Vital stable. Time spent to discharge patient approximately 10 minutes. Plan of care established for shared decision making. No social determinants of health present to impede follow-up. 09/06/23 16:17 Counseled pt/family regarding: lab results, diagnosis, need for follow-up, rad results - Departure Departure Disposition: Home Clinical Impression: Fall, Traumatic hematoma of forehead Condition: Stable Critical Care Time: No Referrals: JING DURON MD [Primary Care Provider] - Follow up/PCP as directed Instructions: Minor Contusion ED, Preventing Falls ED
[2023-09-06 16:06] VITALS: BP 185/90; PULSE 74
== END 2023-09-06 16:19 | disposition home or self-care (01) ==
LOC: ED 13:59
DX: S00.83XA Contusion of other part of head, initial encounter (principal); W10.1XXA Fall (on)(from) sidewalk curb, initial encounter; Y93.01 Activity, walking, marching and hiking; Y92.524 Gas station as the place of occurrence of the external cause; R53.1 Weakness; I12.0 Hypertensive chronic kidney disease with stage 5 chronic kidney disease or end stage renal disease; E11.22 Type 2 diabetes mellitus with diabetic chronic kidney disease; N18.6 End stage renal disease; Z79.4 Long term (current) use of insulin; Z79.02 Long term (current) use of antithrombotics/antiplatelets; Z79.01 Long term (current) use of anticoagulants; Z79.899 Other long term (current) drug therapy; Z99.2 Dependence on renal dialysis
CPT/HCPCS: 36000; 36415; 70450; 80053; 85025; 93005; 93041; 94760; 99284

== ENCOUNTER 2023-12-23 21:48 | Emergency (ER) | payer MEDICARE ==
[2023-12-23 22:16] VITALS: RESP 16; TEMP 97.8
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
[2023-12-23 23:09] VITALS: BP 128/77; PULSE 59; O2SAT 99
== END 2023-12-23 23:04 | disposition home or self-care (01) ==
LOC: ED 21:48
DX: K56.41 Fecal impaction (principal); I50.9 Heart failure, unspecified; E78.5 Hyperlipidemia, unspecified; Z79.4 Long term (current) use of insulin; Z79.02 Long term (current) use of antithrombotics/antiplatelets; Z79.01 Long term (current) use of anticoagulants; Z79.891 Long term (current) use of opiate analgesic
CPT/HCPCS: 99281

== ENCOUNTER 2024-02-29 09:44 | Emergency (ER) | payer MEDICARE, SELFPAY ==
[2024-02-29 10:23] VITALS: TEMP 97.4
--- NOTE | 2024-02-29 10:23 | XRAY ---
Indication: Weakness. Comparison: May 27, 2023 Portable chest again demonstrates cardiomegaly with small bilateral effusions right greater than left favoring cardiac decompensation/CHF versus fluid overload. Superimposed pneumonia not completely excluded. Bony thorax intact again with osteopenia, degenerative changes, and sternotomy wires.
[2024-02-29 10:27] LABS: Absolute Neutrophil Ct (ANC) 2.47 x10^3/uL (1.4-6.9); BASOPHIL % 1.8 % (0.0-0.4); Basophil (Absolute #) 0.07 x10^3/uL (0-0.4); Eosinophil % 2.6 % (0.00-5.0); Hematocrit 35.9 % (42-50); Hemoglobin 11.7 g/dL (12.5-18.0); IMMATURE GRAN # 0.02 x10^3u/L (0.00-0.03); IMMATURE GRAN % 0.5 % (0.00-0.4); Lymphocyte (Absolute #) 0.85 x10^3/uL (1.0-4.6); Lymphocytes % 21.9 % (24.0-44.0); Mean Corpuscular Hemoglobin 32.6 pg (26-32); Mean Corpuscular Hgb Concent. 32.6 g/dL (32-36); Mean Platelet Volume 12.3 fL (7.5-11.0); Monocyte (Absolute #) 0.37 x10^3/uL (0.0-1.3); Monocytes % 9.5 % (0.0-12.0); Neutrophil % 63.7 % (36.0-66.0); Platelet Count 180 x10^3/uL (150-450); Red Blood Count 3.59 x10^6/uL (4.1-5.6); Red Cell Distribution Width 17.8 % (11.5-14.0); White Blood Count 3.9 x10^3/uL (4.0-10.5)
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
[2024-02-29 10:41] LABS: ALBUMIN 3.5 g/dL (3.5-5.0); BILIRUBIN,TOTAL 1.1 mg/dL (0.2-1.3); Creatinine 1 3.35 mg/dL (0.66-1.25); EST GLOMERULAR FILTRATION RATE 18.6 ML/MIN; MAGNESIUM 1.8 mg/dL (1.6-2.3); Potassium 4.3 mmol/L (3.5-5.1); Total Protein 6.1 g/dL (6.3-8.2)
[2024-02-29] MEDS ORDERED: ROCEPHIN 1 GM / 100 ML NaCl 1 GM/100 ML IVPB IV ONE (11:13)
[2024-02-29] MEDS: ROCEPHIN 1 GM / 100 ML NaCl 1 GM/100 ML IVPB IV ONE (11:18)
[2024-02-29] MEDS: SODIUM CHLORIDE 0.9% IV ONE (11:37)
[2024-02-29] MEDS: ZITHROMAX IV ONE (11:37)
--- NOTE | 2024-02-29 11:49 | XRAY ---
Indication: Hypoxia. Short of breath. Multiple contiguous sex images obtained through the chest without contrast. Comparison: December 08, 2020 Heart is now enlarged again with CABG surgery. No pericardial effusion. Stable small mediastinal and bilateral hilar calcified nodes. No pathologic mediastinal lymphadenopathy. Lungs demonstrates new pulmonary edema and small bilateral effusions right greater than left. New effusion in left lung fissure superiorly with subsequent pseudomass. Remaining lungs again demonstrates pulmonary emphysema, tiny calcified granulomas bilaterally, and bibasilar calcified pleural plaquing. Bony thorax intact again with osteopenia, degenerative changes, and sternotomy wires. Limited upper abdomen again demonstrates distended gallbladder with tiny splenic calcified granulomas. Impression: 1. New cardiomegaly, pulmonary edema, and bilateral effusions favoring cardiac decompensation/CHF versus fluid overload. Findings concordant with same day chest radiograph findings. 2. Again chronic findings including pulmonary emphysema, bibasilar calcified pleural plaquing, chronic bony findings, distended gallbladder, and old granulomatous disease.
--- NOTE | 2024-02-29 11:54 | XRAY ---
Indication: Low back pain/lower extremity weakness. Multiple contiguous axial images obtained through the lumbar spine. Sagittal and coronal reformatted images obtained. Comparison: CT abdomen/pelvis September 13, 2022 Osseous structures remain demineralized again with mild multilevel anterior endplate spurring, and mild/moderate bilateral L2-S1 degenerative facet arthropathy. Stable tiny epidural air bubbles posterior to L2-L4 interspace levels either iatrogenic versus secondary to degenerative vacuum disc phenomena. No large disc herniation or spinal canal stenosis. Sagittal and coronal reformatted images again demonstrates normal alignment with vertebral body height/disc spaces maintained. Visualized noncontrasted soft tissues again demonstrates scattered aortoiliac calcifications. CT chest reported separately. Impression: Grossly stable osteopenia, multilevel degenerative changes, and arteriosclerotic disease. No new/acute findings.
[2024-02-29 13:03] VITALS: BP 150/79
[2024-02-29] MEDS ORDERED: DUONEB 0.5-3 MG/3 ml Neb IH ONE (13:06)
[2024-02-29] MEDS: DUONEB 0.5-3 MG/3 ml Neb IH ONE (13:09)
[2024-02-29 13:13] VITALS: PULSE 56; RESP 16
[2024-02-29 14:37] VITALS: O2SAT 91
== END 2024-02-29 13:50 | disposition short-term general hospital (02) ==
LOC: ED 09:44
DX: I13.2 Hypertensive heart and chronic kidney disease with heart failure and with stage 5 chronic kidney disease, or end stage renal disease (principal); E11.22 Type 2 diabetes mellitus with diabetic chronic kidney disease; N18.6 End stage renal disease; I50.9 Heart failure, unspecified; J44.9 Chronic obstructive pulmonary disease, unspecified; R09.02 Hypoxemia; E87.70 Fluid overload, unspecified; M62.81 Muscle weakness (generalized); E78.5 Hyperlipidemia, unspecified; Z79.4 Long term (current) use of insulin; Z79.01 Long term (current) use of anticoagulants; Z79.02 Long term (current) use of antithrombotics/antiplatelets; Z79.899 Other long term (current) drug therapy; Z99.2 Dependence on renal dialysis
CPT/HCPCS: 36000; 36415; 71045; 71250; 72131; 80053; 83605; 83690; 83735; 84484; 85025; 87040; 93005; 94640; 96365; 99285; J0456; J0696; A9270-GY

== ENCOUNTER 2024-04-11 10:37 | Emergency (ER) | payer MEDICARE, SELFPAY ==
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
[2024-04-11 11:12] LABS: Absolute Neutrophil Ct (ANC) 4.02 x10^3/uL (1.4-6.9); BASOPHIL % 1.5 % (0.0-0.4); Basophil (Absolute #) 0.09 x10^3/uL (0-0.4); Eosinophil % 2.6 % (0.00-5.0); Eosinophil (Absolute #) 0.16 x10^3/uL (0-0.5); Hematocrit 29.7 % (42-50); Hemoglobin 9.4 g/dL (12.5-18.0); IMMATURE GRAN # 0.01 x10^3u/L (0.00-0.03); IMMATURE GRAN % 0.2 % (0.00-0.4); Lymphocyte (Absolute #) 1.15 x10^3/uL (1.0-4.6); Mean Cell Volume 102.4 fL (78-100); Mean Corpuscular Hemoglobin 32.4 pg (26-32); Mean Corpuscular Hgb Concent. 31.6 g/dL (32-36); Monocyte (Absolute #) 0.63 x10^3/uL (0.0-1.3); Monocytes % 10.4 % (0.0-12.0); Neutrophil % 66.3 % (36.0-66.0); Platelet Count 212 x10^3/uL (150-450); Red Cell Distribution Width 18.4 % (11.5-14.0); White Blood Count 6.1 x10^3/uL (4.0-10.5)
[2024-04-11 11:15] VITALS: PULSE 58; TEMP 96.9
[2024-04-11 11:29] LABS: ISTAT CL 93 mmol/L (98-109); ISTAT K 4.5 mmol/L (3.5-4.9); ISTAT NA 133 mmol/L (138-146)
[2024-04-11 11:30] LABS: ISTAT BUN 33 mg/dL (8-26); ISTAT CO2 33 mmol/L (24-29); ISTAT CREA 3.8 mg/dL (0.6-1.3); ISTAT GLUC 143 mg/dL (70-105); ISTAT iCA 0.97 mmol/L (1.12-1.32)
--- NOTE | 2024-04-11 12:22 | XRAY ---
Indication: Abdomen pain 2 days. Multiple contiguous axial images obtained through abdomen and pelvis without contrast. Comparison: September 13, 2022. Lung bases again demonstrates pulmonary emphysema, tiny calcified granulomas, and bibasilar cast for pleural plaquing. Heart not enlarged. Stable small hiatal hernia. Noncontrasted stomach and bowel loops nonobstructed. Again descending and transverse duodenal circumferential wall thickening and stranding favoring duodenitis. Normal appendix. Worsening moderate diffuse scattered colonic fecal debris throughout including new mild rectal fecal impaction. Gallbladder demonstrates new sludge in the dependent portion. Stable left mid renal exophytic cyst and tiny splenic calcified granulomas. No free fluid/air. Remaining liver, gallbladder, pancreas, spleen, adrenal glands, kidneys, ureters, and bladder are unremarkable for noncontrast exam. Stable mild aortoiliac calcifications without AAA. Osseous structures intact again with osteopenia, mild/moderate degenerative changes throughout the spine, and mild degenerative changes both hips. Stable moderate fatty left inguinal hernia. Impression: 1. Again recurrent duodenitis. No complications. 2. Worsening moderate diffuse fecal stasis with new rectal fecal impaction. 3. New gallbladder sludge. 4. Again chronic findings including pulmonary emphysema, bibasilar calcified pleural plaquing, hiatal hernia, left renal cyst, arteriosclerotic disease, chronic bony findings, fatty left inguinal hernia, and old granulomatous disease.
[2024-04-11] MEDS ORDERED: Sodium Chloride 0.9% 1000 ML 1,000 ML ONE (12:29)
[2024-04-11] MEDS ORDERED: MORPHINE SULFATE 2 MG INJ ONE (12:29)
[2024-04-11] MEDS ORDERED: Zofran 4 MG/2 ML VIAL ONE (12:29)
[2024-04-11] MEDS: MORPHINE SULFATE 2 MG INJ IV ONE (12:31)
[2024-04-11] MEDS: Zofran 4 MG/2 ML VIAL IV ONE (12:31)
[2024-04-11] MEDS: Sodium Chloride 0.9% 1000 ML 1,000 ML IV SCH (12:31)
[2024-04-11 13:01] LABS: Appearance Clear (Clear); Bacteria None Seen /HPF (None Seen); Bilirubin Negative (Negative); Blood Negative (Negative); Epithelial Cells None Seen /HPF (None Seen); Glucose, Urine Negative (Negative); Ketones Negative (Negative); Leukocyte Esterase Trace (Negative); Nitrite Negative (Negative); Ph 6.5 (4.6-8.0); Protein,Urine Dip 30 (Negative); RBC 0-2 /HPF (0-5); Specific Gravity 1.015 (1.005-1.030); WBC 0-2 /HPF (0-5)
[2024-04-11 13:02] LABS: ADD URINE CULTURE? YES (NO)
[2024-04-11 13:48] VITALS: O2SAT 98
[2024-04-11 14:23] VITALS: BP 161/69
[2024-04-11 18:32] LABS: Direct Bilirubin 0.7 mg/dL (0.0-0.4)
== END 2024-04-11 14:22 | disposition home or self-care (01) ==
LOC: ED 10:37
DX: K56.41 Fecal impaction (principal); R10.33 Periumbilical pain; I13.2 Hypertensive heart and chronic kidney disease with heart failure and with stage 5 chronic kidney disease, or end stage renal disease; E11.22 Type 2 diabetes mellitus with diabetic chronic kidney disease; N18.6 End stage renal disease; I50.9 Heart failure, unspecified; E78.5 Hyperlipidemia, unspecified; Z79.4 Long term (current) use of insulin; Z79.01 Long term (current) use of anticoagulants; Z79.02 Long term (current) use of antithrombotics/antiplatelets; Z79.899 Other long term (current) drug therapy
CPT/HCPCS: 36000; 36415; 51702; 74176; 80047; 81001; 82150; 82247; 82248; 83690; 84075; 84450; 84460; 85025; 87086; 96374; 96375; 99284; J2270; J2405

== ENCOUNTER 2024-05-21 19:25 | Emergency (ER) | payer MEDICARE ==
[2024-05-21 19:41] VITALS: TEMP 96.9
[2024-05-21] MEDS ORDERED: Zofran 4 MG/2 ML VIAL ONE (19:57)
[2024-05-21] MEDS: Zofran 4 MG/2 ML VIAL IV ONE (19:58)
[2024-05-21 20:12] LABS: Absolute Neutrophil Ct (ANC) 1.64 x10^3/uL (1.78-5.38); BASOPHIL % 1.8 % (0.2-1.2); Basophil (Absolute #) 0.06 x10^3/uL (0.01-0.08); Eosinophil % 2.6 % (0.8-7.0); Eosinophil (Absolute #) 0.09 x10^3/uL (0.04-0.54); Hematocrit 28.2 % (40.1-51.0); Hemoglobin 9.2 g/dL (13.7-17.5); IMMATURE GRAN # 0.01 x10^3u/L (0.001-0.031); IMMATURE GRAN % 0.3 % (0.001-0.429); Lymphocyte (Absolute #) 1.11 x10^3/uL (1.32-3.57); Lymphocytes % 32.5 % (21.8-53.1); Mean Cell Volume 105.2 fL (79.0-92.2); Mean Corpuscular Hemoglobin 34.3 pg (25.7-32.2); Mean Corpuscular Hgb Concent. 32.6 g/dL (32.3-36.5); Mean Platelet Volume 11.6 fL (9.4-12.4); Monocyte (Absolute #) 0.51 x10^3/uL (0.30-0.82); Monocytes % 14.9 % (5.3-12.2); Neutrophil % 47.9 % (34.0-67.9); Platelet Count 216 x10^3/uL (163-337); Red Blood Count 2.68 x10^6/uL (4.63-6.08); Red Cell Distribution Width 19.9 % (11.6-14.4); White Blood Count 3.4 x10^3/uL (4.23-9.07)
[2024-05-21 20:25] LABS: ALBUMIN 3.5 g/dL (3.5-5.0); ANION GAP 8.1 MEQ/L (5-15); BILIRUBIN,TOTAL 1.4 mg/dL (0.2-1.3); Calcium 8.8 mg/dL (8.4-10.2); Creatinine 1 1.6 mg/dL (0.66-1.25); EST GLOMERULAR FILTRATION RATE 45.2 ML/MIN; Potassium 3.7 mmol/L (3.5-5.1)
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
[2024-05-21] MEDS ORDERED: NORCO 5/325 MG ONE (21:47)
[2024-05-21] MEDS: NORCO 5/325 MG PO ONE (21:49)
[2024-05-22 00:03] VITALS: BP 134/60; RESP 18
[2024-05-22 00:07] VITALS: O2SAT 98
[2024-05-22 00:39] VITALS: PULSE 63
== END 2024-05-22 00:34 | disposition short-term general hospital (02) ==
LOC: ED 19:25
DX: I13.2 Hypertensive heart and chronic kidney disease with heart failure and with stage 5 chronic kidney disease, or end stage renal disease (principal); N18.6 End stage renal disease; R53.83 Other fatigue; I50.9 Heart failure, unspecified; E78.5 Hyperlipidemia, unspecified; E11.9 Type 2 diabetes mellitus without complications; Z79.01 Long term (current) use of anticoagulants; Z79.02 Long term (current) use of antithrombotics/antiplatelets; Z79.4 Long term (current) use of insulin; Z79.899 Other long term (current) drug therapy
CPT/HCPCS: 36000; 36415; 80053; 83605; 84484; 85025; 93005; 96374; 99285; J2405; A9270-GY

== ENCOUNTER 2025-03-20 06:01 | Observation (INO) | payer MEDICARE ==
[2025-03-20 06:48] LABS: Absolute Neutrophil Ct (ANC) 6.98 x10^3/uL (1.78-5.38); BASOPHIL % 0.7 % (0.2-1.2); Basophil (Absolute #) 0.06 x10^3/uL (0.01-0.08); Eosinophil % 1.9 % (0.8-7.0); Eosinophil (Absolute #) 0.17 x10^3/uL (0.04-0.54); Hematocrit 32.4 % (40.1-51.0); Hemoglobin 10.7 g/dL (13.7-17.5); IMMATURE GRAN # 0.04 x10^3u/L (0.001-0.031); IMMATURE GRAN % 0.5 % (0.001-0.429); Lymphocyte (Absolute #) 0.83 x10^3/uL (1.32-3.57); Lymphocytes % 9.5 % (21.8-53.1); Mean Cell Volume 102.9 fL (79.0-92.2); Mean Platelet Volume 11.4 fL (9.4-12.4); Monocyte (Absolute #) 0.68 x10^3/uL (0.30-0.82); Monocytes % 7.8 % (5.3-12.2); Neutrophil % 79.6 % (34.0-67.9); Platelet Count 225 x10^3/uL (163-337); Red Blood Count 3.15 x10^6/uL (4.63-6.08); Red Cell Distribution Width 16.1 % (11.6-14.4); White Blood Count 8.8 x10^3/uL (4.23-9.07)
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
[2025-03-20 07:25] LABS: ALBUMIN 3.3 g/dL (3.5-5.0); ANION GAP 14.6 MEQ/L (5-15); BILIRUBIN,TOTAL 2.4 mg/dL (0.2-1.3); Calcium 8.3 mg/dL (8.4-10.2); Creatinine 1 4.91 mg/dL (0.66-1.25); EST GLOMERULAR FILTRATION RATE 11.7 ML/MIN; MAGNESIUM 2.2 mg/dL (1.6-2.3); Potassium 4.2 mmol/L (3.5-5.1); Total Protein 6.4 g/dL (6.3-8.2)
[2025-03-20] MEDS ORDERED: MORPHINE SULFATE 4 MG INJ ONE (08:24)
[2025-03-20] MEDS: MORPHINE SULFATE 4 MG INJ IV ONE (08:24)
--- NOTE | 2025-03-20 09:16 | XRAY ---
Indication: Rib pain following fall. Comparison: February 29, 2024 Portable chest inflated and is now clear again with incidental tiny bilateral calcified granulomas. Heart not enlarged again with CABG. Bony thorax intact again with osteopenia and mild degenerative changes. No new/acute findings.
--- NOTE | 2025-03-20 09:18 | XRAY ---
Indication: Pain following fall. Comparison: None AP/lateral thoracic spine demonstrates 12 rib-bearing segments in normal alignment with osteopenia and minimal/mild multilevel cervical thoracic degenerative spondylosis. No acute abnormalities. Chest reported separately.
--- NOTE | 2025-03-20 11:54 | XRAY ---
Indication: Trauma. Frontal head injury. Multiple contiguous axial images obtained through the head without contrast. Comparison: September 06, 2023 Again age-appropriate global atrophy and minimal periventricular degenerative micro-ischemia. No acute intracranial hemorrhage, abnormal extra-axial fluid collection, or mass effect. Fourth ventricle is midline without hydrocephalus. Bony calvarium intact. Visualized paranasal sinuses and mastoid air cells are clear. Impression: Again nonacute senile brain.
--- NOTE | 2025-03-20 11:56 | XRAY ---
Indication: Trauma. Frontal head injury. Dizziness. Multiple contiguous axial images obtained through the cervical spine. Sagittal and coronal reformatted images obtained. Comparison: September 01, 2023 Again osteopenia. Axial images negative for acute fracture, suspicious bony lesions, or spinal canal stenosis. There remains mild multilevel C3-C7 degenerative endplate spurring and moderate multilevel bilateral degenerative facet hypertrophy. Sagittal and coronal reformatted images again demonstrates normal alignment with disc spaces maintained. No acute compression fracture, subluxation, or jumped facet. Normal appearing craniocervical junction. Visualized noncontrasted soft tissues again demonstrates mild bilateral carotid calcifications. Impression: 1. Continued negative for acute fracture/subluxation. 2. Stable chronic findings including osteopenia, multilevel degenerative changes, and bilateral carotid calcifications.
[2025-03-20] MEDS: TORAdol 30 mg Injection IV ONE (12:13)
[2025-03-20] MEDS ORDERED: TORAdol 30 mg Injection ONE (12:13)
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
[2025-03-20] MEDS ORDERED: HUMALOG SQ PRN (15:09)
[2025-03-20] MEDS ORDERED: clonazePAM PO PRN (17:36)
[2025-03-20] MEDS ORDERED: Lopressor 25MG Tab PO SCH (22:00)
[2025-03-20] MEDS ORDERED: NON-FORMULARY ITEM (Melatonin [Melatonin] 10 MG Tablet) PO SCH (22:00)
[2025-03-20] MEDS ORDERED: NON-FORMULARY ITEM (Apixaban [Eliquis] 5 MG Tablet) PO SCH (22:00)
[2025-03-20] MEDS ORDERED: NON-FORMULARY ITEM (Atorvastatin Calcium [Lipitor] 80 MG Tablet) PO SCH (22:00)
[2025-03-20] MEDS ORDERED: NEURONTIN PO SCH (22:00)
[2025-03-20] MEDS ORDERED: MELATONIN PO ONE (23:03)
[2025-03-20] MEDS ORDERED: ZOCOR 20MG ONE (23:05)
[2025-03-20] MEDS: ZOCOR 20MG PO SCH (23:10)
[2025-03-20] MEDS: REMERON 30 MG PO SCH (23:10)
[2025-03-20] MEDS: ELIQUIS 2.5 MG TABLET PO SCH (23:10)
[2025-03-20] MEDS: MELATONIN PO SCH ×2 (23:11)
[2025-03-21 00:20] VITALS: BP 111/49; PULSE 64; RESP 16; TEMP 96.5; O2SAT 97
[2025-03-21] MEDS ORDERED: NON-FORMULARY ITEM (Ubidecarenone [Co Q-10] 200 MG Capsule) PO SCH (10:00)
[2025-03-21] MEDS ORDERED: VITAMIN B-12 100 MCG PO SCH (10:00)
[2025-03-21] MEDS ORDERED: NON-FORMULARY ITEM (Fenofibrate [Fenofibrate] 160 MG Tablet) PO SCH (10:00)
[2025-03-21] MEDS ORDERED: DOCUSATE SODIUM 100 MG PO SCH (10:00)
[2025-03-21] MEDS ORDERED: Lexapro PO SCH (10:00)
[2025-03-21] MEDS ORDERED: SYNTHROID 75 MCG PO SCH (10:00)
[2025-03-21] MEDS ORDERED: Avodart 0.5 MG PO SCH (10:00)
== END 2025-03-21 02:28 | disposition home or self-care (01) ==
LOC: ED 06:01 → MED SURG 14:40
PROVIDERS: ADMIT Internal Medicine; ATTEND Internal Medicine
DX: I13.0 Hypertensive heart and chronic kidney disease with heart failure and stage 1 through stage 4 chronic kidney disease, or unspecified chronic kidney disease (principal); E11.22 Type 2 diabetes mellitus with diabetic chronic kidney disease; N18.6 End stage renal disease; I50.9 Heart failure, unspecified; N17.9 Acute kidney failure, unspecified; R10.9 Unspecified abdominal pain; R53.81 Other malaise; W19.XXXA Unspecified fall, initial encounter; E03.9 Hypothyroidism, unspecified; J44.9 Chronic obstructive pulmonary disease, unspecified; I48.20 Chronic atrial fibrillation, unspecified; R53.1 Weakness; Z86.79 Personal history of other diseases of the circulatory system; Z79.01 Long term (current) use of anticoagulants; Z79.899 Other long term (current) drug therapy; Z95.0 Presence of cardiac pacemaker; Z79.4 Long term (current) use of insulin
CPT/HCPCS: 36415; 70450; 71045; 72072; 72125; 80053; 82947; 83735; 85025; 93005; 93268; 96374; 96375; 99285; J1885; J2270; Q3014; A9270-GY; G0378